=== PATIENT | female | born 1945 | race Caucasian/White ===

== ENCOUNTER 2020-08-31 13:19 | Inpatient (IN) | payer MEDICARE, BC ==
[~2020-08-31] VITALS: Ht 165.1 cm; Wt 56.2 kg
[2020-08-31] MEDS ORDERED: MEMA10TA PO (13:27)
--- NOTE | 2020-08-31 13:49 | NUR ---
[email or web address], medical screening exam in progress
--- NOTE | 2020-08-31 13:59 | NUR ---
Patient wants to make a phone call before any diagnostic tests@this time
--- NOTE | 2020-08-31 14:10 | NUR ---
[employer] officers are here speaking with the patient and family.
--- NOTE | 2020-08-31 14:32 | NUR ---
Patient placed on 5150 hold by [employer] for danger to self and others, hold started on 08/31/20 at 1430
[2020-08-31 14:44] LABS: HEMATOCRIT 39.1 % (31.2-41.9); MEAN CORPUSCULAR HEMOGLOBIN 31.2 uug (24.7-32.8); MEAN CORPUSCULAR VOLUME 94.1 fL (75.5-95.3); PLATELET COUNT (AUTO) 310 K/uL (179-408)
[2020-08-31 14:53] LABS: ETHANOL < 3 MG/DL (0-0)
[2020-08-31 14:57] LABS: CARBON DIOXIDE 26 mmol/L (21-32); CHLORIDE 104 mmol/L (98-107); GLUCOSE 86 mg/dL (74-106); POTASSIUM 3.5 mmol/L (3.5-5.1); UREA NITROGEN, BLOOD 19 mg/dL (7-18)
[2020-08-31 15:07] LABS: THYROID STIMULATING HORMONE 3.164 mIU/mL (0.358-3.740)
[2020-08-31 15:12] LABS: ACETAMINOPHEN 3.5 ug/mL (10-30); ALANINE AMINOTRANSFERASE 18 U/L (14-59); ALKALINE PHOSPHATASE 78 U/L (50-136); ASPARTATE AMINOTRANSFERASE 15 U/L (15-37); BILIRUBIN,DIRECT 0.3 mg/dL (0.0-0.2); BILIRUBIN,TOTAL 1.4 mg/dL (0.2-1.0); TOTAL PROTEIN, SERUM 7.2 g/dL (6.4-8.2)
--- NOTE | 2020-08-31 15:30 | NUR ---
Per pt is medically clear and may be trans to MHU. Called MHU, there are no beds available. Nursing food service supervisor notified need for 1:1 sitter and MHU bed.
--- NOTE | 2020-08-31 16:11 | NUR ---
Patient is getting agitated. She is getting out of bed & room frequently, +high-risk for elopement with 5150 psych HOLD for danger to self & others. Patient was also heard repeatedly saying, "I must leave. Why am I here while they're getting my money?" notified. Nursing potato chip processing supervisor notified again for 1:1 sitter need for this patient.
[2020-08-31] MEDS ORDERED: ZIPRASIDONE MESYLATE 20 MG VIAL IM ONE ×2 (16:15→16:17)
--- NOTE | 2020-08-31 16:21 | NUR ---
Patient is eating food tray from dietary department with good appetite.
--- NOTE | 2020-08-31 17:00 | NUR ---
Spoke with nursing scanning supervisor and MHU charge nurse, pt to be admitted to 3rd floor as MHU overflow next shift as there will be a 1:1 sitter available at that time.
--- NOTE | 2020-08-31 17:19 | NUR ---
Patient is still mildly agitated and heard crying loudly at times. sales officer [email or web address]
--- NOTE | 2020-08-31 18:57 | NUR ---
Patient is still waiting for MHU admission, pending available bed & nurse. information security officer [email or web address]. Hands off report given to BOLA Marquez.
--- NOTE | 2020-08-31 20:00 | NUR ---
Pt resting in gurney with NAD noted. Pending MHU admission. private security guard at bedside for 1:1 observation.
--- NOTE | 2020-08-31 21:45 | NUR ---
Admission Note: 75 y.o. female admitted to MHU accompanied by ER. Pt is on a 5150 for DTS and GD. Pt is under the care of Dr Muir and Dr Orantes, with a dx of Psychosis. According to the 5150, the police department received a call reporting a violent female with mental illness and acute memory loss. Brother in law reported Pt became paranoid and violent toward him due to an argument about money. Pt ingested some papers during her assessment. Pt is a danger to others because of her violent actions toward others and is a danger to herself due to sustaining injuries by being restrained for violent tendencies and actions. Upon face to face assessment, Pt is unkempt and disheveled and appears medicated-expresses garbled, pressured speech, and nods off during assessment. Pt is A+Ox2 to self and place, and presents with altered thought process-disorganized, easily irritable, confused, forgetful, and disoriented. Pt has poor insight into situation and minimizes reason for admission, stating she is here because I got into a tiff with my sister. Pt appears to be medicated and sedated, she is guarded as well as a poor historian. Pt received an IM of Geodon 20mg for aggressive and disruptive behaviors in the ER prior to admission to MHU. Denies SI/HI, and is able to verbally contract for safety. Upon admission to the unit VS were stable and she denied pain. Pt has no known h/o smoking, drug, or alcohol abuse. Body assessment completed with licensed staff- (B) anterior forearm bruising noted with abrasions to both arms as well. Pt placed in clean hospital gown and pants. Pt has a known medical h/o dementia, and has NKA. Dr Muir and Dr Orantes notified of admission, orders received, meds reconciled. Covid test is negative. Belongings inventoried contraband placed in unit locker, landry and credit cards taken to Nursing Medicare Biller. Pt was cognitively unable to sign paperwork, co-signed with tag machine operator. Pt educated regarding unit rules and expectations. Patient rights explained, Advisement and patient rights handbook given, Pt will need reinforcement due to altered mental status. Pt oriented to the unit, the phones, her room, and the bathroom. Pt is a high suicide risk, Q 15 minute safety checks initiated.
--- NOTE | 2020-08-31 21:50 | NUR ---
Pt trans to MHU, NAD noted.
[2020-08-31] MEDS ORDERED: MAGNESIUM HYDROXIDE 30 ML LIQUID UDC PO PRN (22:15)
[2020-08-31] MEDS ORDERED: BLOOD SUGAR DIAGNOSTIC 1 EACH STRIP VI ONE (22:15)
[2020-08-31] MEDS ORDERED: ACETAMINOPHEN 325 MG TABLET PO PRN (22:15)
[2020-08-31] MEDS ORDERED: MAG HYDROX/AL HYDROX/SIMETH 30 ML LIQUID UDC PO PRN (22:15)
[2020-08-31 22:19] VITALS: BP 113/63
[2020-09-01 07:30] VITALS: BP 148/62
[2020-09-01] MEDS ORDERED: OLANZAPINE 10 MG VIAL IM ONE (10:30)
--- NOTE | 2020-09-01 10:47 | NUR ---
GPS: Nursing Notes: Severe Agitation: Patient is awake and confused, disoriented, forgetful, restless, behavior, banging on the brady, AWOL risk, constantly pushing the exit doors "I need to get out of here..", paranoid behavior, believes that his brother in law sold her house, overly disruptive by constantly shouting, poor anger management, "My sister and bother in law took my money from the bank..", redirected and reoriented to reality by the psychiatrist, but continue to be restless, constantly shouting, setting limits, but unable to be redirected, psychotic behavior, unable to contract for safety, continue to monitor for safety, continue with treatment plan.
--- NOTE | 2020-09-01 11:04 | NUR ---
GPS: Nursing Notes: Chemical Restraint: Patient continue to be overly disruptive by constantly pushing the exit doors, stating "I NEED TO GET OUT OF HERE... I AM GOING TO LOOSE MY HOUSE..", "HE IS STEALING MY MONEY..", AWOL risk, constantly pacing in the hallway, confused, disorganized, paranoid behavior, trying to call the police, banging on the brady, restless behavior, psychotic, setting limits, but unable to be redirected, striking out when redirected by staff, confused, disoriented, poor anger management, Dr. Muir ordered: Zyprexa 5mg IM STAT for severe agitated behavior, R=18, medication IM given at this time, continue to monitor for safety, continue with treatment plan.
[2020-09-01] MEDS ORDERED: LORAZEPAM 2 MG/1 ML VIAL IM ONE (11:15)
--- NOTE | 2020-09-01 11:34 | NUR ---
GPS: Nursing Notes: Reassessment of Chemical Restraint: Continue with restless behavior, poor anger management, unable to contract for safety, paranoid, believes that she is going to loose her house, overly disruptive shouting, poor impulse control, medication IM was not effective, R=18, unable to follow directions, confused, disoriented, impaired judgment, continue to monitor for safety, continue with treatment plan.
--- NOTE | 2020-09-01 11:46 | NUR ---
GPS: Nursing Notes: Chemical Restraint: Striking out: Patient continue to be restless, confused, paranoid, continue to believes that her brother in law is stealing money from her bank, AWOL risk, shouting "I NEED TO GO HOME... GET ME OUT OF HERE.. I AM GOING TO CALL THE POLICE..", episode of trying to stand on the yassine chair without any regard for her safety, confused, disoriented, forgetful, bizarre behavior, violent outburst without provocation, scratched staff on the right arm and then tried to bite staff when assisting her to sit on the yassine chair, unable to contract for safety, overly disruptive by constantly shouting, restless behavior, Dr. Muir ordered: Ativan 1mg IM for severe agitated behavior, R=18, medication IM given at this time, continue to monitor for safety, continue with treatment plan.
--- NOTE | 2020-09-01 12:16 | NUR ---
GPS: Nursing Notes: Reassessment of Chemical Restraint: Patient is awake and responding to her name, R=18, eating 75% of her lunch, patient became calm, but continue to be confused, disoriented, forgetful, constantly asking the same question, over and over, redirected and reoriented during shift, medication IM was effective, continue to monitor for safety, continue with treatment plan.
[2020-09-01] MEDS: risperiDONE-M 0.5 MG TAB.RAPDIS PO SCH ×2 (13:00→16:26)
[2020-09-01] MEDS: LORAZEPAM 0.5 MG TABLET PO SCH ×2 (13:01→16:26)
[2020-09-01 15:19] VITALS: BP 123/67
[2020-09-01] MEDS ORDERED: HALOPERIDOL LACTATE 5 MG/1 ML VIAL IM STA (19:47)
[2020-09-01] MEDS ORDERED: BENZTROPINE MESYLATE 2 MG/2 ML AMPUL IM STA (19:47)
[2020-09-01] MEDS ORDERED: LORAZEPAM 2 MG/1 ML VIAL IM STA (19:47)
[2020-09-01 20:17] VITALS: BP 114/59
[2020-09-01] MEDS ORDERED: DIVALPROEX SPRINKLE 125 MG CAP.SPRINK PO SCH (21:00)
--- NOTE | 2020-09-01 22:15 | NUR ---
Chemical Restraint Note: Pt was received standing in the hallway screaming, "You all took my money and caged me up here! You're working with my brother in law to steal everything from me! I don't belong here!" Staff intervened, and this expert medical writer offered prn medication to help calm her, but Pt slapped at staff's hand, then grabbed it and attempted to bite. Combative, aggressive, threatening, and argumentative, Pt was unable to calm and unwilling to comply with redirection and other de-escalating measures. Uncooperative, resistant to care, and unable to follow unit rules, Pt was resistant to staff direction for self and staff safety. Dr Muir notified of Pt's behavior, and Haldol 5mg, Cogentin 1mg, and Ativan 1mg was ordered and administered to (L) buttock with moderate effect. Pt was agitated and resistant to the IM, and 3 staff were required to keep the Pt still as the shot was given. No injuries to staff or Pt occured. Pt had to be placed in a yassine chair in front of staff for safety. Pt was unsteady on her feet and refused to sit or lie down. Pt stated, "I can walk by myself" then was unable to do so independently. Pt banged her fists on the brady and the chair until she reluctantly fell asleep approximately 90 after the injection. Pt obsereved lying back in the chair with her eyes closed, breathing even and unlabored, VS stable.
[2020-09-02] MEDS: LEVOTHYROXINE SODIUM 50 MCG TABLET PO SCH ×2 (06:13→08:10)
[2020-09-02] MEDS: risperiDONE-M 0.5 MG TAB.RAPDIS PO SCH ×4 (08:10→16:56)
[2020-09-02] MEDS: LORAZEPAM 0.5 MG TABLET PO SCH ×4 (08:10→16:57)
[2020-09-02 08:30] VITALS: BP 139/60
--- NOTE | 2020-09-02 08:52 | NUR ---
GPS: Nursing Notes: Severe Agitation: Patient is overly disruptive by constantly shouting, endangering herself by standing over the yassine chair, banging and punching the table without any regard for her safety, pulling off her wound dressings, striking out, trying to scratch staff, setting limits, redirected and reoriented to reality, but unable to be redirected, confused, disorganized, aggressive toward staff, restless behavior, unable to contract for safety, continue with treatment plan.
[2020-09-02] MEDS ORDERED: BENZTROPINE MESYLATE 2 MG/2 ML AMPUL IM STA (08:57)
[2020-09-02] MEDS ORDERED: LORAZEPAM 2 MG/1 ML VIAL IM STA (08:57)
[2020-09-02] MEDS ORDERED: HALOPERIDOL LACTATE 5 MG/1 ML VIAL IM STA (08:57)
--- NOTE | 2020-09-02 09:13 | NUR ---
GPS: Nursing Notes: Chemical Restraint: Patient continue to be overly disruptive, impaired judgment, confused, disorganized, paranoid, believes that her family is stealing from her, restless behavior, shouting "I WANT TO GO HOME.. ", striking out at staff, kicking staff, standing on the yassine chair, constantly banging on the table without any regard for safety, trying to scratch staff when assisting her for safety, Dr. Muir ordered: Haldol 5mg IM, Ativan 1mg IM, and Cogentin 1mg IM STAT for severe agitation, R=18, IM medications given at this time, continue to monitor for safety, continue with treatment plan.
[2020-09-02 10:02] LABS: HEMATOCRIT 36.4 % (31.2-41.9); MEAN CORPUSCULAR HEMOGLOBIN 31.8 uug (24.7-32.8); MEAN CORPUSCULAR VOLUME 94.1 fL (75.5-95.3); PLATELET COUNT (AUTO) 253 K/uL (179-408)
[2020-09-02 10:16] LABS: BILIRUBIN,TOTAL 0.9 mg/dL (0.2-1.0); CREATININE 0.8 mg/dL (0.6-1.3); MAGNESIUM 2.2 mg/dL (1.8-2.4); POTASSIUM 3.6 mmol/L (3.5-5.1); TOTAL PROTEIN, SERUM 6.4 g/dL (6.4-8.2)
--- NOTE | 2020-09-02 11:43 | NUR ---
GPS: Nursing Notes: Reassessment of Chemical Restraint: Patient is awake and responding to her name, continue to be confused, disoriented, grabbing the air, but patient became calm, R=18, continue to monitor for safety, continue with treatment plan.
--- NOTE | 2020-09-02 13:39 | NUR ---
DOMINIQUE Initial Discharge Plan: Patient currently resides at [address], [place] [address]. Patient's brother in law Ventura ([phone]) and sister Zakiya are involved in patient's care. This SW contacted Ventura to discuss treatment and discharge plan. Ventura stated that pt will need a nursing facility and that they are unable to take care of pt at home. SW will coordinate discharge plan with MD, pt, and family for proper placement.
--- NOTE | 2020-09-02 13:40 | NUR ---
DOMINIQUE Family Contact: Patient's brother in law Ventura ([phone]) and sister Zakiya are involved in patient's care. This SW contacted Ventura to discuss treatment and discharge plan. Ventura stated that pt will need a nursing facility and that they are unable to take care of pt at home.
--- NOTE | 2020-09-02 13:40 | NUR ---
Firearms Report: Hops Farmworker completed and submitted a [employer] firearms report for 5150 grave disability certification. A copy of report has been placed in patient chart.
--- NOTE | 2020-09-02 13:46 | NUR ---
Treatment Plan: Patient refused to sign treatment plan and was aggressive. Patient appears to be very confused.
[2020-09-02 15:31] VITALS: BP 149/62
[2020-09-02 20:25] VITALS: BP 140/60
[2020-09-03] MEDS: LEVOTHYROXINE SODIUM 50 MCG TABLET PO SCH (06:38)
--- NOTE | 2020-09-03 06:49 | NUR ---
GPS: Pt.slept 6 hrs.last night. Now up on yassine-chair in front of nurses station for safety with occasional episodes of crying/screaming. Re-directed and re-assured prn. Refused Synthroid med.despite explanation of importance. Refuses fluids also at this time. Will continue to monitor.
[2020-09-03 07:30] VITALS: BP 146/78
[2020-09-03] MEDS: risperiDONE-M 0.5 MG TAB.RAPDIS PO SCH ×4 (08:38→16:49)
[2020-09-03] MEDS: LORAZEPAM 0.5 MG TABLET PO SCH ×4 (08:38→16:50)
--- NOTE | 2020-09-03 08:56 | NUR ---
GPS: Nursing Notes: Severe Agitation: Patient is awake and overly disruptive by shouting, constantly banging on the table and trying to stand on the yassine chair without any regard for her safety, threatening staff when assisting her for safety, paranoid, believes that we put her in [facility] because we are working with her brother in law, "HE IS TAKEN MY MONEY AND MY HOUSE.. I NEED TO GET OUT OF HERE..",episodes of trying to scratch staff staff, setting limits, redirected and reoriented to reality, but unable to follow directions, unable to contract for safety, continue to monitor for safety, continue with treatment plan.
[2020-09-03] MEDS ORDERED: risperiDONE-M 0.5 MG TAB.RAPDIS PO ONE (09:00)
[2020-09-03] MEDS: DIVALPROEX SPRINKLE 125 MG CAP.SPRINK PO SCH ×4 (09:00→16:50)
[2020-09-03] MEDS ORDERED: HALOPERIDOL LACTATE 5 MG/1 ML VIAL IM ONE (09:04)
[2020-09-03] MEDS ORDERED: BENZTROPINE MESYLATE 2 MG/2 ML AMPUL IM ONE (09:04)
--- NOTE | 2020-09-03 09:13 | NUR ---
GPS: Nursing Notes: Chemical Restraint: Patient continue to be overly disruptive by constantly shouting, restless behavior, paranoid behavior banging on the table constantly, standing on the yassine chair without any regard for her safety, striking out to staff when assisting her for her safety, confused, disoriented, unable to be redirected, unable to contract for safety, Dr. Muir ordered: Haldol 5mg IM and Cogentin 1mg IM STAT for severe agitation, R=18, continue to monitor for safety, continue with treatment plan.
--- NOTE | 2020-09-03 09:43 | NUR ---
GPS: Nursing Notes: Reassessment of Chemical Restraint: Patient is awake and responding to her name, impaired judgment, paranoid, but less disruptive, less shouting, IM medications were helpful, R=18, continue to be disoriented, confused, impaired judgment, poor impulse control, continue to monitor for safety, continue with treatment plan.
--- NOTE | 2020-09-03 10:42 | NUR ---
DOMINIQUE Individual Therapy: carry in worker met with patient for brief counseling to help address patients presenting problem aggressive behavior. Patient appears to be very confused and disorganized. Patient unable to have proper conversation due to her confusion.
[2020-09-03 12:07] LABS: *BILIRUBIN,URIN NEGATIVE (NEGATIVE); *BLOOD, URINE NEGATIVE (NEGATIVE); *CLARITY,URINE SLIGHTLY CLOUDY (CLEAR); *COLOR,URINE YELLOW (YELLOW); *KETONES,URINE NEGATIVE (NEGATIVE); *UROBILINOGEN,URINE 0.2 E.U./dl (NORMAL); LEUKOCYTE ESTERASE ,URINE 1+ (NEGATIVE); NITRITE, URINE NEGATIVE (NEGATIVE); PH,URINE 6.5 (5.0-8.0); UGLUCOSE NEGATIVE (NEGATIVE)
[2020-09-03 12:13] LABS: *AMPHETAMINE, URINE NEGATIVE (NEGATIVE); *CANNABINOID, URINE NEGATIVE (NEGATIVE); *COCCAINE, URINE NEGATIVE (NEGATIVE); *OPIATE, URINE NEGATIVE (NEGATIVE); *PHENCYCLIDINE SCREEN,URINE NEGATIVE (NEGATIVE)
[2020-09-03] MEDS: ENSURE ENLIVE (VAN) 240 ML LIQUID PO SCH ×2 (12:32→16:50)
--- NOTE | 2020-09-03 12:54 | NUR ---
SW Family Contact: This SW met with patient's brother in law Ventura and sister Jolynn and discussed patient's discharge and treatment plan. This SW gave family list of nursing facilities [facility], [facility], and [facility]. Patient's family reported that they were taking care of pt for the past 2 years and they are currently unable to take care of her. Sister Jolynn stated that the past 6 months she has been deteriorating and has been aggressive towards family. This SW educated family on patient's mental illness and hospitalization. Family was understanding.
[2020-09-03] MEDS ORDERED: OLANZAPINE 10 MG VIAL IM ONE (13:45)
[2020-09-03] MEDS: CEphaleXIN 250 MG CAPSULE PO SCH ×3 (14:00→21:59)
[2020-09-03 15:27] VITALS: BP 99/54
[2020-09-03 16:31] LABS: BACTERIA,URINE MANY /HPF (NONE SEEN); MUCUS,URINE FEW /LPF (0-FEW); SQUAMOUS EPITHELIAL CELL,UR FEW /HPF (NONE SEEN); URINE AMORPHOUS URATE MODERATE /HPF; WBC,URINE TNTC /HPF (0-3)
[2020-09-03 20:13] VITALS: BP 95/57
[2020-09-03] MEDS: TEMAZEPAM 7.5 MG CAPSULE PO PRN (22:00)
[2020-09-04] MEDS: CEphaleXIN 250 MG CAPSULE PO SCH ×3 (06:00→21:19)
[2020-09-04] MEDS: LEVOTHYROXINE SODIUM 50 MCG TABLET PO SCH (06:22)
--- NOTE | 2020-09-04 06:33 | NUR ---
GPS: Pt.refused her atb and synthroid med.at this time despite numerous attempts by staff. Confused,disoriented and forgetful. Reality re-orientation provided prn. Has episodes of crying and verbalizing that she wants to go home. Poor insight to present situation. Fall precautions observed. Re-assured prn.
[2020-09-04 07:30] VITALS: BP 118/73
--- NOTE | 2020-09-04 08:00 | NUR ---
PATIENT IS IN THE MONIQUE CHAIR BY THE STATION HYPER VOCAL BANGING THE THE TABLE REPEATEDLY AND ASKING TO GET THE HELL OUT OF HERE TRIED GIVING PATIENT HER DUE MEDICATIONS BUT SHE REFUSED TO TAKE THEM MADE MANY ATTEMPTS TO GET HER TO TAKE HER MEDICATIONS BUT THE AGITATION AND ANXIETY DID NOT STOP WILL OBSERVE
[2020-09-04] MEDS ORDERED: LORAZEPAM 2 MG/1 ML VIAL IM ONE (08:30)
[2020-09-04] MEDS ORDERED: HALOPERIDOL LACTATE 5 MG/1 ML VIAL IM ONE (08:30)
--- NOTE | 2020-09-04 08:34 | NUR ---
AGITATION RESTLESSNESS BANGING ON THE TABLE GOT WORSE DR RAMOS NOTIFIED WITH ORDERS FOR IM SHOTS AND GIVEN ORDERED PATIENT IS VERBALLY ABUSIVE CALLING THIS WRITTER A PIG.
[2020-09-04] MEDS: DIVALPROEX SPRINKLE 125 MG CAP.SPRINK PO SCH ×3 (09:00→16:00)
[2020-09-04] MEDS: LORAZEPAM 0.5 MG TABLET PO SCH ×3 (09:00→16:00)
[2020-09-04] MEDS: risperiDONE-M 0.5 MG TAB.RAPDIS PO SCH ×3 (09:00→16:00)
[2020-09-04] MEDS ORDERED: BENZTROPINE MESYLATE 2 MG/2 ML AMPUL IM SCH (09:00)
[2020-09-04] MEDS: ENSURE ENLIVE (VAN) 240 ML LIQUID PO SCH ×3 (09:08→17:21)
--- NOTE | 2020-09-04 14:59 | NUR ---
LINDSAY PATHAK HERE AND SEEN PATIENT WITH NO NEW ORDERS AT THIS TIME SITTING UP ON THE GERICHAIR AWAKE AND NOT IN DISTRESS AT THIS TIME.
[2020-09-04 16:00] VITALS: BP 120/50
--- NOTE | 2020-09-04 17:31 | NUR ---
FAMILY VISITING HER AT THE MOMENT SHE IS ALERT TO SELF ONLY QUIET WAS COMPLIANT WITH MEDICATIONS WILL CONTINUE TO OBSERVE AND PROVIDE COMFORT
[2020-09-04 20:26] VITALS: BP 96/56
[2020-09-04] MEDS: TEMAZEPAM 7.5 MG CAPSULE PO PRN (21:19)
[2020-09-05] MEDS: LORAZEPAM 0.5 MG TABLET PO PRN (05:50)
[2020-09-05] MEDS: LEVOTHYROXINE SODIUM 50 MCG TABLET PO SCH (06:01)
[2020-09-05] MEDS: CEphaleXIN 250 MG CAPSULE PO SCH ×3 (06:01→20:32)
[2020-09-05 07:30] VITALS: BP 97/50
[2020-09-05] MEDS: LORAZEPAM 0.5 MG TABLET PO SCH ×3 (08:24→16:21)
[2020-09-05] MEDS: risperiDONE-M 0.5 MG TAB.RAPDIS PO SCH ×3 (08:24→16:21)
[2020-09-05] MEDS: DIVALPROEX SPRINKLE 125 MG CAP.SPRINK PO SCH ×3 (08:24→16:21)
[2020-09-05] MEDS: ENSURE ENLIVE (VAN) 240 ML LIQUID PO SCH ×3 (08:36→16:21)
--- NOTE | 2020-09-05 09:44 | NUR ---
DOMINIQUE PC Hearing: Patient had 5250 probable cause hearing today and it was upheld for grave disability and danger to others.
--- NOTE | 2020-09-05 10:00 | NUR ---
SW SNF Referral: This SW sent patient's clinicals to nursing facilities. This SW sent H & P, progress notes, and medication list to: Madelyn sofia from [facility] ([phone]), Faith beckett from [facility] ([phone]), and Radha beckett from [facility] ([phone]) for placement option.
--- NOTE | 2020-09-05 10:08 | NUR ---
DOMINIQUE Individual Therapy: ironing worker met with patient for brief counseling to help address patients presenting problem aggressive behavior. Patient appears to be very confused and disorganized. Patient yelling and stating "get out of here, I do not want to talk to anyone". SW unable to conduct therapy at this time.
--- NOTE | 2020-09-05 10:39 | NUR ---
SW SNF Contact: This SW received a call from Jammie beckett from [facility] ([phone]) who stated they cannot accept pt.
--- NOTE | 2020-09-05 11:12 | NUR ---
SW SNF Contact: This SW received a phone call from Radha beckett from [facility] ([phone]) who accepted pt.
--- NOTE | 2020-09-05 11:23 | NUR ---
SW Family Contact: This SW spoke with patient's brother in law Ventura ([phone]) and stated that pt is accepted at [facility] and he was agreeable with this. This SW stated that admin will contact Ventura to discuss secondary insurance payor and will help pt sign up for medical.
--- NOTE | 2020-09-05 12:57 | NUR ---
SW Family Contact: This SW spoke with patient's brother in law Ventura ([phone]) and stated [facility] accepted pt and he stated he will do his research and will let this SW know which facility family chooses.
--- NOTE | 2020-09-05 12:58 | NUR ---
SW SNF Contact: This SW spoke with Madelyn sofia from [facility] ([phone]) who stated pt is accepted.
--- NOTE | 2020-09-05 15:39 | NUR ---
Gps/Television News Reporter- Restless, figity, poor safety awareness, gait unsteady , routine medications was administered with pudding. Appeared to be responding to internal stimuli, talking to herself, seeing someone sitting in her chair, wants him out of there .Patient perseverates that her family are stealing her money , and she had crying spells, , claimed nothing left of her money. Kept up in her yassine-chair for safety, patient kept sliding from her chair. kept infront of the Nurses station . Patient was ambulated couple of times . Had episodes of uncooperative behavior during her care/hygiene, tends to bite staff when trying to clean her.
[2020-09-05 16:00] VITALS: BP 123/87
[2020-09-05 20:20] VITALS: BP 110/57
[2020-09-05] MEDS: TEMAZEPAM 7.5 MG CAPSULE PO PRN (20:32)
[2020-09-05] MEDS: risperiDONE 1 MG TABLET PO SCH (20:32)
[2020-09-05] MEDS ORDERED: risperiDONE 0.5 MG TABLET PO SCH (21:00)
[2020-09-06] MEDS: LORAZEPAM 0.5 MG TABLET PO PRN ×4 (04:02→22:07)
[2020-09-06] MEDS: CEphaleXIN 250 MG CAPSULE PO SCH ×3 (06:00→20:25)
--- NOTE | 2020-09-06 06:00 | NUR ---
GPS: Pt.refused her AM ATB and Synthroid , despite numerous attempts by staff. Remained Confused and disoriented and forgetful. Reality re-orientation provided prn. Has episodes of crying and verbalizing that she wants to go home. Poor insight to present situation. slept 6 hrs through the night. Fall precautions observed. Re-assured prn. continue plan of care.
[2020-09-06] MEDS: LEVOTHYROXINE SODIUM 50 MCG TABLET PO SCH (06:03)
[2020-09-06 07:30] VITALS: BP_SYST 139; BP_SYST 98; BP_DIAS 62; BP_DIAS 73
[2020-09-06 07:56] LABS: CREATININE 0.8 mg/dL (0.6-1.3); MAGNESIUM 2.1 mg/dL (1.8-2.4); PHOSPHOROUS 3.3 mg/dL (2.5-4.9); POTASSIUM 4.1 mmol/L (3.5-5.1)
[2020-09-06 08:02] LABS: HEMATOCRIT 37.9 % (31.2-41.9); MEAN CORPUSCULAR HEMOGLOBIN 31.3 uug (24.7-32.8); MEAN CORPUSCULAR VOLUME 93.8 fL (75.5-95.3); PLATELET COUNT (AUTO) 285 K/uL (179-408)
[2020-09-06] MEDS: LORAZEPAM 0.5 MG TABLET PO SCH ×3 (08:05→16:13)
[2020-09-06] MEDS: risperiDONE-M 0.5 MG TAB.RAPDIS PO SCH ×3 (08:05→16:14)
[2020-09-06] MEDS: DIVALPROEX SPRINKLE 125 MG CAP.SPRINK PO SCH ×3 (08:06→16:13)
[2020-09-06] MEDS: ENSURE ENLIVE (VAN) 240 ML LIQUID PO SCH ×3 (08:06→16:14)
--- NOTE | 2020-09-06 09:54 | NUR ---
SW Family Contact: This SW spoke with patient's brother in law Ventura ([phone]) who stated that he has a appointment with [facility] and [facility] for a tour. He stated he will let this SW know which facility family will choose on 09/09.
--- NOTE | 2020-09-06 13:32 | NUR ---
Gps/Poultry Hatchery Man- Daughter in-law of her sister in to visit , patient appeared to be calmer, when family visits, patient fell asleep
[2020-09-06 16:41] VITALS: BP 136/55
--- NOTE | 2020-09-06 17:15 | NUR ---
Gps/Counter Sales Representative- Labile , aggressive during her care , kept sliding from her yassine-chair, difficulty redirecting patient. Gaits gets unsteady , fall precaution., safety reviewed emphasized. Kept in front of the Nurses station and constantly needing close supervision. , climbs out of the yassine- chair. Old bilateral skin tears to her forearms redressed with boarder dressing.
[2020-09-06] MEDS: risperiDONE 1 MG TABLET PO SCH (20:22)
[2020-09-06 20:24] VITALS: BP 142/60
[2020-09-06] MEDS ORDERED: LORAZEPAM 2 MG/1 ML VIAL IM ONE (22:15)
[2020-09-06] MEDS ORDERED: HALOPERIDOL LACTATE 5 MG/1 ML VIAL IM ONE (22:15)
--- NOTE | 2020-09-07 01:32 | NUR ---
RECEIVED PATIENT IN MONIQUE CHAIR IN FRONT OF NURSES STATION. NOTED LABILE, CONFUSED, AGGRESSIVE,BANGING THE TABLE , SLIDING OUT OF THE CHAIR SEVERAL TIMES. SHE ALSO REFUSED HER ORAL MEDICATIONS AND RE DIRECTION DID NOT WORK. DR ALVAREZ WAS INFORMED WHO GAVE AN ORDER FOR 1MG ATIVAN AND 2MG HALDOL. GIVEN AT 22:37 WITH MINIMAL EFFECT.SHE CONTINUE TO YELL AND BE RESTLESS. TOILLETTED HER AND LATER PUT IN HER BED WITH FALL PRECAUTIONS IN PLACE.VITAL SIGNS REMAIN STABLE WITH VISUAL CHECKS MADE ON HER FOR SAFETY. WILL CONTINUE TO MONITOR.
[2020-09-07] MEDS: CEphaleXIN 250 MG CAPSULE PO SCH ×3 (06:00→18:07)
[2020-09-07] MEDS: LEVOTHYROXINE SODIUM 50 MCG TABLET PO SCH (06:43)
--- NOTE | 2020-09-07 06:56 | NUR ---
SHE SLEPT FOR 4;45 HOURS.
[2020-09-07 07:31] LABS: VALPROIC ACID 70 ug/mL (50-100)
[2020-09-07] MEDS: risperiDONE-M 0.5 MG TAB.RAPDIS PO SCH ×3 (08:07→18:07)
[2020-09-07] MEDS: DIVALPROEX SPRINKLE 125 MG CAP.SPRINK PO SCH ×3 (08:07→18:07)
[2020-09-07 08:08] VITALS: BP 118/53
[2020-09-07] MEDS: LORAZEPAM 0.5 MG TABLET PO SCH ×3 (08:08→18:07)
[2020-09-07] MEDS: ENSURE ENLIVE (VAN) 240 ML LIQUID PO SCH ×3 (08:16→18:09)
[2020-09-07] MEDS ORDERED: diphenhydrAMINE 50 MG/1 ML VIAL IM ONE (12:30)
[2020-09-07] MEDS ORDERED: LORAZEPAM 2 MG/1 ML VIAL IM ONE (12:30)
[2020-09-07] MEDS ORDERED: HALOPERIDOL LACTATE 5 MG/1 ML VIAL IM ONE (12:30)
--- NOTE | 2020-09-07 12:30 | NUR ---
Gps/Internet Marketing Director- Grabbing staff, throws lunch tray on the floor,, scratching staff, trying to bite, difficulty redirecting patient, labile mood, calling out. Transmission Rebuilder called Psychiatrist Dr Walden , orders received.
--- NOTE | 2020-09-07 14:07 | NUR ---
Gps/Manufacturing Operations Manager- Kept patient up in her yassine-chair for safety, remains restless, crying spells, loud, bangings her tray, calling out, mumbling." calling out get me out of here" Try to reorient patient and redirect patient, fluid offered. Monitored safety, kept by the Nurses station
--- NOTE | 2020-09-07 14:34 | NUR ---
Gps/Ld Teacher- Patient remains up in her yassine-chair by the Nurses ststion , to be monitored closely for safety, asleep at this time, in no signs of any distress
[2020-09-07 17:03] VITALS: BP 145/76
--- NOTE | 2020-09-07 18:10 | NUR ---
Gps/Sales And Marketing Coordinator-Family came in to visit, , wanting to know patient's progress, informed of patient agressive behavior towards staff, and was medicated as ordered by Psychiatrist to calm and manage her labile behavior. .Noted patient appeared to calm down when family are here .
--- NOTE | 2020-09-07 18:41 | NUR ---
Gps/Senior Mechanical Engineer- Daughter in law remains in the room visiting noted crying spells, , patient wants to go home, tries to reorient patient to place and time. , patient not cooperative , fidgity .safety reviewed emphasized.
[2020-09-07 19:55] VITALS: BP 134/63
--- NOTE | 2020-09-07 20:00 | NUR ---
Received patient in her room sitting in a gretel chair. she is noted easily irritable, poor historian, unable to have a useful conversation. mood is irritable affect is flat. Speech is disorganized, mumbles at times. appears to be responding to internal stimuli. V/S stable. safety and fall precaution in place. will continue to monitor.
[2020-09-07] MEDS: risperiDONE 1 MG TABLET PO SCH ×2 (20:26→21:00)
--- NOTE | 2020-09-07 22:00 | NUR ---
patient refused Risperdal 1mg PO QHS. multiple attempt to administer medication yet refused. she is noted less irritable less combative at this time. will continue to monitor.
[2020-09-08] MEDS: LORAZEPAM 0.5 MG TABLET PO PRN ×2 (04:41→19:50)
[2020-09-08] MEDS: CEphaleXIN 250 MG CAPSULE PO SCH ×2 (06:00→13:46)
[2020-09-08] MEDS: LEVOTHYROXINE SODIUM 50 MCG TABLET PO SCH (06:57)
[2020-09-08 07:30] VITALS: BP 167/73
[2020-09-08] MEDS: risperiDONE-M 0.5 MG TAB.RAPDIS PO SCH ×3 (09:12→17:00)
[2020-09-08] MEDS: ENSURE ENLIVE (VAN) 240 ML LIQUID PO SCH ×3 (09:13→17:00)
[2020-09-08] MEDS: DIVALPROEX SPRINKLE 125 MG CAP.SPRINK PO SCH ×3 (09:13→17:00)
[2020-09-08] MEDS: LORAZEPAM 0.5 MG TABLET PO SCH ×3 (09:13→17:00)
--- NOTE | 2020-09-08 09:42 | NUR ---
Gps/Liquid Center Assembler- OOB to her yassine-chair , kept her infront of the Nurses station for close supervision, safety reviewed. Patient constantly fidgity, crying spells, anxious, calling out, , claimed wants to get out of here, tries to reorient patient, prompted to take routine am meds. administered with pudding . Fluid intake encouraged.
--- NOTE | 2020-09-08 11:16 | NUR ---
Gps/Powder Loader- Sliding off her yassine-chair, kept infront of the Nurses station for safety, mumbles, kept crying , no tears. banging her lap tray. . Fluids offered, kept throwing and spilling on the floor. Patient kept calling out, thinks she is in her home.
[2020-09-08] MEDS ORDERED: HALOPERIDOL LACTATE 5 MG/1 ML VIAL IM ONE (13:45)
[2020-09-08] MEDS ORDERED: diphenhydrAMINE 50 MG/1 ML VIAL IM ONE (13:45)
[2020-09-08] MEDS ORDERED: LORAZEPAM 2 MG/1 ML VIAL IM ONE (13:45)
--- NOTE | 2020-09-08 14:36 | NUR ---
Gps/vn- Patient asleep, remains in her yassine-chair, in no distress
[2020-09-08 16:00] VITALS: BP 118/74
[2020-09-08 20:00] VITALS: BP 155/79
--- NOTE | 2020-09-08 20:00 | NUR ---
RECEIVED PATIENT IN THE HALLWAY SITTING IN A MONIQUE CHAIR CLOSE TO THE NURSING STATION. SHE IS NOTED A/I X 1. RESTLESS. SHE IS UNABLE TO HAVE A MEANINGFUL CONVERSATION WITH THIS DEPOSITION OPERATOR. SHE MUMBLES. HER JUDGMENT AND INSIGHT ARE IMPAIRED. SHE IS NOTED EASILY IRRITABLE, HARD TO REDIRECT. SHE REFUSED PO FLUIDS AND SNACKS AT THIS TIME. V/S STABLE. ATIVAN 0.5MG WAS GIVEN FOR AGITATION. SAFETY AND FALL PRECATUION IN PLACE. WILL CONTINUE TO MONITOR.
[2020-09-08] MEDS: risperiDONE 1 MG TABLET PO SCH (21:00)
--- NOTE | 2020-09-08 22:00 | NUR ---
PATIENT REFUSED RISPERIDONE 1MG PO QHS. MULTIPLE ATTEMPTS YET INEFFECTIVE. WILL CONTINUE TO MONITOR.
[2020-09-09] MEDS: TEMAZEPAM 7.5 MG CAPSULE PO PRN ×2 (01:32→23:47)
--- NOTE | 2020-09-09 01:45 | NUR ---
patient noted restless, yelling at time. Patient was given temazepam 7.5mg PO PRN for insomnia. Medication was put on pudding. However, she spitted some of the medication. unable to guess how much of the medication she was able to ingest. will continue to monitor.
[2020-09-09] MEDS: LEVOTHYROXINE SODIUM 50 MCG TABLET PO SCH (07:00)
[2020-09-09 07:30] VITALS: BP 140/53
[2020-09-09] MEDS: risperiDONE-M 0.5 MG TAB.RAPDIS PO SCH ×4 (08:43→17:04)
[2020-09-09] MEDS: LORAZEPAM 0.5 MG TABLET PO SCH ×4 (08:43→17:04)
[2020-09-09] MEDS: DIVALPROEX SPRINKLE 125 MG CAP.SPRINK PO SCH ×2 (08:43→10:10)
[2020-09-09] MEDS: ENSURE ENLIVE (VAN) 240 ML LIQUID PO SCH ×3 (08:43→17:05)
--- NOTE | 2020-09-09 10:51 | NUR ---
SNF Referral: This SW sent patient's clinicals to admissions (F:[phone]) for [facility].
--- NOTE | 2020-09-09 11:12 | NUR ---
SNF Contact This SW received a call from [facility] admissions who stated that they are unable to accept pt.
--- NOTE | 2020-09-09 11:12 | NUR ---
SW Family Contact: This SW spoke with patient's brother in law Ventura ([phone]) and stated that [facility] is unable to accept pt due to behavior issues. Ventura stated that [facility] they are agreeable with pt transferring there upon dc.
[2020-09-09] MEDS ORDERED: LACTULOSE 20 G/30 ML LIQUID UDC PO ONE (11:30)
[2020-09-09] MEDS ORDERED: LORAZEPAM 2 MG/1 ML VIAL IM ONE (11:45)
--- NOTE | 2020-09-09 11:45 | NUR ---
GPS: Nursing Notes: Ativan IM: Medication IM not given due to patient became calm, less disruptive, stopped hitting staff, cooperative with nursing care, continue to monitor for safety, continue with treatment plan.
[2020-09-09 11:49] LABS: HEMATOCRIT 41.4 % (31.2-41.9); MEAN CORPUSCULAR HEMOGLOBIN 31.2 uug (24.7-32.8); MEAN CORPUSCULAR VOLUME 93.4 fL (75.5-95.3); PLATELET COUNT (AUTO) 310 K/uL (179-408)
[2020-09-09 11:54] LABS: CREATININE 0.8 mg/dL (0.6-1.3); POTASSIUM 4.4 mmol/L (3.5-5.1)
[2020-09-09 12:00] LABS: BILIRUBIN,TOTAL 1.5 mg/dL (0.2-1.0); MAGNESIUM 2.4 mg/dL (1.8-2.4); TOTAL PROTEIN, SERUM 6.9 g/dL (6.4-8.2)
[2020-09-09 15:07] VITALS: BP 122/69
[2020-09-09 20:00] VITALS: BP 154/79
[2020-09-09] MEDS: risperiDONE 1 MG TABLET PO SCH (20:20)
--- NOTE | 2020-09-10 05:46 | NUR ---
GPS: Remain calm and cooperative with meds, resting in bed comfortably. assisted with adl's.continue plan of care.
--- NOTE | 2020-09-10 06:03 | NUR ---
slept 4.30 hrs through the night after restoril 7.5 mg po given.
[2020-09-10] MEDS: LEVOTHYROXINE SODIUM 50 MCG TABLET PO SCH (06:07)
[2020-09-10 07:30] VITALS: BP 141/75
[2020-09-10] MEDS: ENSURE ENLIVE (VAN) 240 ML LIQUID PO SCH ×3 (09:00→16:22)
[2020-09-10] MEDS: risperiDONE-M 0.5 MG TAB.RAPDIS PO SCH ×3 (09:08→16:22)
[2020-09-10] MEDS: LORAZEPAM 0.5 MG TABLET PO SCH ×3 (09:08→16:21)
[2020-09-10] MEDS: busPIRone 5 MG TABLET PO SCH ×3 (09:12→16:22)
--- NOTE | 2020-09-10 09:17 | NUR ---
GPS: Nursing Notes: Severe Agitation: Patient is awake and overly disruptive by shouting constantly, trying to scratch staff when assisting her, impaired judgment, disorganized, resistant with nursing, striking out to staff, banging on the table, restless, behavior, setting limits, redirected and reoriented, but unable to follow directions, Dr. Muir pageeliu, continue to monitor for safety, continue with treatment plan.
--- NOTE | 2020-09-10 09:18 | NUR ---
SW Family Contact: This SW spoke with patient's brother in law Ventura ([phone]) and he requested to speak to doctor Isadora. This SW notified doctor Isadora.
[2020-09-10] MEDS ORDERED: LORAZEPAM 2 MG/1 ML VIAL IM ONE (09:45)
--- NOTE | 2020-09-10 09:50 | NUR ---
GPS: Nursing Notes: Chemical Restraint: Patient continue to be overly disruptive by constantly shouting, trying to stand on the yassine chair without any regard for her safety, striking out at staff, trying to scratch staff when assisting her, restless behavior, setting limits, but unable to follow any directions, disorganized, confused, Dr. Muir called and ordered: Ativan 1mg IM STAT for severe agitated behavior, R=18, medication IM given at this time, continue to monitor for safety, continue with treatment plan.
--- NOTE | 2020-09-10 10:20 | NUR ---
GPS: Nursing Notes: Reassessment of Chemical Restraint: Patient is awake and responding to her name, patient became calm, confused, disoriented, disorganized, stopped hitting staff, medication IM was effective, R=18, continue to monitor for safety, continue with treatment plan.
--- NOTE | 2020-09-10 11:53 | NUR ---
DOMINIQUE Individual Therapy: interior surface insulation worker met with patient for brief counseling to help address patients presenting problem aggressive behavior. Patient appears to be very confused and disorganized. Patient is confused stating at she is at home or yelling she wants to go home. Patient is unable to have a proper conversation due to confusion.
[2020-09-10 16:12] VITALS: BP 115/71
[2020-09-10 17:34] LABS: *BILIRUBIN,URIN NEGATIVE (NEGATIVE); *BLOOD, URINE NEGATIVE (NEGATIVE); *CLARITY,URINE CLEAR (CLEAR); *COLOR,URINE YELLOW (YELLOW); *KETONES,URINE 1+ (NEGATIVE); *UROBILINOGEN,URINE 0.2 E.U./dl (NORMAL); LEUKOCYTE ESTERASE ,URINE TRACE (NEGATIVE); NITRITE, URINE NEGATIVE (NEGATIVE); UGLUCOSE NEGATIVE (NEGATIVE)
[2020-09-10 17:52] LABS: BACTERIA,URINE NONE SEEN /HPF (NONE SEEN); MUCUS,URINE FEW /LPF (0-FEW); SQUAMOUS EPITHELIAL CELL,UR MODERATE /HPF (NONE SEEN); URINE AMORPHOUS PHOSPHATES FEW /HPF; WBC,URINE 20-50 /HPF (0-3)
[2020-09-10 20:15] VITALS: BP 127/67
[2020-09-10] MEDS: risperiDONE 1 MG TABLET PO SCH (20:44)
[2020-09-10] MEDS: TEMAZEPAM 7.5 MG CAPSULE PO PRN (23:00)
[2020-09-11] MEDS: LEVOTHYROXINE SODIUM 50 MCG TABLET PO SCH (06:05)
[2020-09-11 07:30] VITALS: BP 118/65
[2020-09-11] MEDS: busPIRone 5 MG TABLET PO SCH ×3 (08:19→16:54)
[2020-09-11] MEDS: risperiDONE-M 0.5 MG TAB.RAPDIS PO SCH ×3 (08:19→16:54)
[2020-09-11] MEDS: LORAZEPAM 0.5 MG TABLET PO SCH ×3 (08:19→16:54)
[2020-09-11] MEDS: ENSURE ENLIVE (VAN) 240 ML LIQUID PO SCH ×3 (08:21→18:02)
[2020-09-11] MEDS ORDERED: LACTULOSE 20 G/30 ML LIQUID UDC PO ONE (11:00)
[2020-09-11] MEDS ORDERED: CEFTRIAXONE 1 G VIAL IM ONE ×2 (12:30→14:30)
[2020-09-11 16:00] VITALS: BP 106/74
[2020-09-11] MEDS: BENZTROPINE MESYLATE 0.5 MG TABLET PO SCH (18:45)
[2020-09-11 20:00] VITALS: BP 111/68
[2020-09-11] MEDS: risperiDONE 1 MG TABLET PO SCH (20:07)
[2020-09-11] MEDS: TEMAZEPAM 7.5 MG CAPSULE PO PRN (21:03)
[2020-09-12] MEDS: LEVOTHYROXINE SODIUM 50 MCG TABLET PO SCH (06:11)
--- NOTE | 2020-09-12 06:49 | NUR ---
Patient slept 7 hrs through out the shift.
[2020-09-12 07:17] LABS: HEMATOCRIT 36.8 % (31.2-41.9); MEAN CORPUSCULAR HEMOGLOBIN 31.5 uug (24.7-32.8); MEAN CORPUSCULAR VOLUME 92.7 fL (75.5-95.3); PLATELET COUNT (AUTO) 264 K/uL (179-408)
[2020-09-12 07:30] VITALS: BP 119/62
[2020-09-12 07:33] LABS: BILIRUBIN,TOTAL 0.9 mg/dL (0.2-1.0); CREATININE 0.8 mg/dL (0.6-1.3); MAGNESIUM 2.2 mg/dL (1.8-2.4); POTASSIUM 3.9 mmol/L (3.5-5.1); TOTAL PROTEIN, SERUM 5.9 g/dL (6.4-8.2)
[2020-09-12 08:00] VITALS: BP 119/62
[2020-09-12] MEDS: risperiDONE-M 0.5 MG TAB.RAPDIS PO SCH ×3 (10:57→16:07)
[2020-09-12] MEDS: BENZTROPINE MESYLATE 0.5 MG TABLET PO SCH ×3 (10:58→16:08)
[2020-09-12] MEDS: LORAZEPAM 0.5 MG TABLET PO SCH ×3 (10:58→16:09)
[2020-09-12] MEDS: busPIRone 5 MG TABLET PO SCH ×3 (10:58→16:08)
[2020-09-12] MEDS: ENSURE ENLIVE (VAN) 240 ML LIQUID PO SCH ×3 (10:59→17:39)
[2020-09-12] MEDS: GABAPENTIN 100 MG CAPSULE PO SCH ×3 (10:59→16:09)
--- NOTE | 2020-09-12 13:24 | NUR ---
SW Family Contact: This SW spoke with patient's brother in law Ventura ([phone]) and stated pt's possible dc is 09/14 and he was agreeable with this to [facility] SNF.
--- NOTE | 2020-09-12 13:24 | NUR ---
SW Note: This SW spoke with patient and discussed that she will be going to [facility] SNF and she was agreeable with this plan.
[2020-09-12 16:00] VITALS: BP 98/48
[2020-09-12] MEDS: LORAZEPAM 0.5 MG TABLET PO PRN (19:49)
[2020-09-12 20:30] VITALS: BP 97/50
[2020-09-12] MEDS ORDERED: GABAPENTIN 300 MG CAPSULE PO SCH (21:00)
[2020-09-12] MEDS ORDERED: GABAPENTIN 100 MG CAPSULE PO SCH (21:00)
[2020-09-13] MEDS: LEVOTHYROXINE SODIUM 50 MCG TABLET PO SCH (06:20)
[2020-09-13] MEDS: ENSURE ENLIVE (VAN) 240 ML LIQUID PO SCH ×2 (08:42→12:58)
[2020-09-13] MEDS: risperiDONE-M 0.5 MG TAB.RAPDIS PO SCH ×2 (09:00→12:41)
[2020-09-13] MEDS: LORAZEPAM 0.5 MG TABLET PO SCH ×2 (09:00→12:58)
[2020-09-13] MEDS: busPIRone 5 MG TABLET PO SCH ×2 (09:00→12:40)
[2020-09-13] MEDS: BENZTROPINE MESYLATE 0.5 MG TABLET PO SCH ×2 (09:00→12:40)
[2020-09-13] MEDS: GABAPENTIN 100 MG CAPSULE PO SCH ×2 (09:00→12:40)
--- NOTE | 2020-09-13 09:51 | NUR ---
SW Discharge Note: Patient will be discharged to a locked chcf facility to [address] [address]; ([phone]) via ambulance at 1PM. Shift Supervisor Rn spoke with Radha, Assembly Line Robot Operator at [facility]; ([phone]), who stated patient will be accepted at facility today. Patients brother in law Ventura ([phone]) is aware and agreeable with discharge. Patient is alert and oriented x1 and is not able to plan for self-care at this time but is willing to accept care provided for her at the facility. Patient denies any suicidal or homicidal ideation. Patient is aware and agreeable with discharge plans. Patient will continue to follow-up with her Psychiatrist Dr. Muir and Medical Imaging Specialist Dr. Davis at [address] [address]; ([phone]). Patient will follow-up at the center. Patient presents with euthymic mood and congruent affect.
[2020-09-13 10:18] VITALS: BP 119/61
[2020-09-13] MEDS: LORAZEPAM 0.5 MG TABLET PO PRN (11:00)
--- NOTE | 2020-09-13 14:48 | NUR ---
Patient discharged to [facility]. Patient awake, alert and oriented x 1, confused. Not in acute distress. VS WNL. Patient denies any pain/ discomfort. ID armband removed. Belongings accounted for and belongings list signed. Discharge documents sent with patient/ ambulance crew. Patient fixated on purse, reassured patient purse will be going with patient to facility. Patient left unit via [facility] gurney. Nursing report given to BOLA Whatley of [facility]. Patient will follow up with Dr. Muir (psychiatrist) and Dr. Davis (oil refinery operator) at [facility].
== END 2020-09-13 14:40 | DRG 885 ==
LOC: ER 13:19 → GPS 21:43
PROVIDERS: ADMIT Psychiatry & Neurology Psychosomatic Medicine; ATTEND Nurse Practitioner Family
DX: F25.0 Schizoaffective disorder, bipolar type (principal); F01.50 Vascular dementia, unspecified severity, without behavioral disturbance, psychotic disturbance, mood disturbance, and anxiety; G93.41 Metabolic encephalopathy; N39.0 Urinary tract infection, site not specified; E87.0 Hyperosmolality and hypernatremia; E44.0 Moderate protein-calorie malnutrition; E72.4 Disorders of ornithine metabolism; E03.9 Hypothyroidism, unspecified; B96.20 Unspecified Escherichia coli [E. coli] as the cause of diseases classified elsewhere; F41.9 Anxiety disorder, unspecified; Z20.822 Contact with and (suspected) exposure to COVID-19; F29 Unspecified psychosis not due to a substance or known physiological condition; F60.3 Borderline personality disorder; E88.09 Other disorders of plasma-protein metabolism, not elsewhere classified; Z68.20 Body mass index [BMI] 20.0-20.9, adult
CPT/HCPCS: 36415; 70030-TC; 70450; 71045; 80164; 83605; 83735; 84100; 84443; 85025; 87040; 87077; 87086; 93005; A4663; G0480; J0515; J0696; J1200; J1630; J2060; J2358; J3486

== ENCOUNTER 2020-09-13 15:25 | Emergency (ER) | payer MEDICARE, BC ==
[~2020-09-13] VITALS: Ht 165.1 cm; Wt 56.7 kg
[~2020-09-13 15:25] MED LIST: MEMA10TA PO
--- NOTE | 2020-09-13 15:30 | NUR ---
Per nursing equipment records supervisor pt will be admitted to the ER. Pt placed in room 2b, security officers and guards at bedside for safety and 1:1 observation.
--- NOTE | 2020-09-13 15:35 | NUR ---
MD at bedside for assessment Addendum: 09/13/20 at 1613 by CARMELO Patient noted yelling and hitting staff
--- NOTE | 2020-09-13 15:40 | NUR ---
1 to 1 sitter at bedside (security)
[2020-09-13] MEDS ORDERED: LORAZEPAM 2 MG/1 ML VIAL ONE (15:42)
[2020-09-13] MEDS ORDERED: HALOPERIDOL LACTATE 5 MG/1 ML VIAL ONE (15:42)
[2020-09-13] MEDS ORDERED: diphenhydrAMINE 50 MG/1 ML VIAL ONE (15:42)
[2020-09-13] MEDS ORDERED: HALOPERIDOL LACTATE 5 MG/1 ML VIAL IM ONE (15:45)
[2020-09-13] MEDS ORDERED: LORAZEPAM 2 MG/1 ML VIAL IM ONE (15:45)
[2020-09-13] MEDS ORDERED: diphenhydrAMINE 50 MG/1 ML VIAL IM ONE (15:45)
--- NOTE | 2020-09-13 15:50 | NUR ---
Patient behavior has calmed down, no restraints applied at this time, sitter noted at bedside
--- NOTE | 2020-09-13 16:11 | NUR ---
Patient being picked up at by [facility], patient continues to cry but is no longer hitting, no signs of acute distress noted, will return to prior living arrangements
[2020-09-13 16:58] VITALS: BP 135/71
== END 2020-09-13 16:30 | disposition home or self-care (01) ==
LOC: ER 15:25
DX: F03.90 Unspecified dementia, unspecified severity, without behavioral disturbance, psychotic disturbance, mood disturbance, and anxiety (principal); R45.1 Restlessness and agitation; Z79.899 Other long term (current) drug therapy
CPT/HCPCS: 96372; 99284; J1200; J1630; J2060; A4663

== ENCOUNTER 2021-09-10 14:32 | Inpatient (IN) | payer MEDICARE, BC ==
[~2021-09-10] VITALS: Ht 167.6 cm; Wt 77.1 kg
[2021-09-10] MEDS ORDERED: GABA100C PO (15:00)
[2021-09-10] MEDS ORDERED: LEVO50TA PO (15:00)
[2021-09-10] MEDS ORDERED: NA P133E RC (15:00)
[2021-09-10] MEDS ORDERED: MAGN400O6 PO (15:00)
[2021-09-10] MEDS ORDERED: RISP2TAB5 PO (15:00)
[2021-09-10] MEDS ORDERED: ACET-73 PO (15:00)
[2021-09-10] MEDS ORDERED: ACET-2154 PO (15:00)
[2021-09-10] MEDS ORDERED: BUSP7.5T7 PO (15:00)
[2021-09-10] MEDS ORDERED: MAG-55 PO (15:00)
[2021-09-10] MEDS ORDERED: MEMA10TA PO (15:00)
[2021-09-10] MEDS ORDERED: COGENTIN PO (15:00)
[2021-09-10 15:17] LABS: MEAN CORPUSCULAR VOLUME 87.9 fL (75.5-95.3); PLATELET COUNT (AUTO) 290 K/uL (179-408)
[2021-09-10 15:26] LABS: CARBON DIOXIDE 29 mmol/L (21-32); CHLORIDE 103 mmol/L (98-107); CREATININE 0.9 mg/dL (0.6-1.3); GLUCOSE 101 mg/dL (74-106); UREA NITROGEN, BLOOD 20 mg/dL (7-18)
[2021-09-10 15:39] LABS: ETHANOL < 3 MG/DL (0-0)
[2021-09-10 15:41] LABS: ALANINE AMINOTRANSFERASE 19 U/L (14-59); ALKALINE PHOSPHATASE 78 U/L (50-136); ASPARTATE AMINOTRANSFERASE 13 U/L (15-37); BILIRUBIN,DIRECT 0.2 mg/dL (0.0-0.2); BILIRUBIN,TOTAL 1.1 mg/dL (0.2-1.0); TOTAL PROTEIN, SERUM 6.7 g/dL (6.4-8.2)
[2021-09-10 15:47] LABS: ACETAMINOPHEN < 2.0 ug/mL (10-30)
[2021-09-10 20:10] VITALS: BP 125/76
--- NOTE | 2021-09-10 20:23 | NUR ---
Pt taken to [facility] via [facility] with all belongings.
[2021-09-10] MEDS ORDERED: MAG HYDROX/AL HYDROX/SIMETH 30 ML LIQUID UDC PO PRN (20:45)
[2021-09-10] MEDS ORDERED: MAGNESIUM HYDROXIDE 30 ML LIQUID UDC PO PRN (20:45)
[2021-09-10] MEDS ORDERED: BLOOD SUGAR DIAGNOSTIC 1 EACH STRIP VI ONE (21:00)
[2021-09-10] MEDS: TEMAZEPAM 7.5 MG CAPSULE PO PRN (21:07)
[2021-09-11] MEDS: LORAZEPAM 0.5 MG TABLET PO PRN ×3 (03:41→16:51)
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
[2021-09-11] MEDS: LEVOTHYROXINE SODIUM 50 MCG TABLET PO SCH (06:17)
[2021-09-11 07:51] VITALS: BP 119/62
[2021-09-11] MEDS: GABAPENTIN 100 MG CAPSULE PO SCH ×3 (08:16→16:06)
[2021-09-11] MEDS: risperiDONE 1 MG TABLET PO SCH ×3 (09:30→16:06)
[2021-09-11] MEDS: LORAZEPAM 0.5 MG TABLET PO SCH ×3 (09:30→16:06)
[2021-09-11] MEDS ORDERED: POLYVINYL ALCOHOL OPHT DROPS 15 ML BOTTLE EACHEYE PRN (11:30)
--- NOTE | 2021-09-11 12:35 | NUR ---
Gps/Field Party Manager-Patient was able to take a nap this am, till 1215 this pm, taken to the dinning to eat . Patient with poor insight, tend to wander around, goes room to room, unable to fine her room . Encouraged eat, feed self, compliant with pm meds.
--- NOTE | 2021-09-11 14:00 | NUR ---
Gps/Carpenter- Crying spells, weinning , confused, speech incoherent kept repeating " I'm fat my days are over" . Redirected, reality reorientations, patient remains confused, pacing around. Stayed with patient, kept in bed, tried to kept reorienting, redirecting. Patient appeared to be relaxed, quiet at this time, asleep, continue to monitor behavior. No additional prn given at this time
--- NOTE | 2021-09-11 14:18 | NUR ---
Gps/General Production Laborer- Sleeping intermittently in bed , safety emphasized, put on the yassine-chair for safety, wander around anxiously, confused ,incoherent , claimed she's fat and ugly
--- NOTE | 2021-09-11 14:36 | NUR ---
DOMINIQUE Initial Discharge Note: Pt's current resides at [facility] ([address] [address]) ([phone]). Per Donna from the facility, pt is welcome back upon discharge. DOMINIQUE will continue to work with pt, family and MD to ensure a safe and proper discharge plan.
--- NOTE | 2021-09-11 14:40 | NUR ---
SW Discharge Update: Gian Thompson from [facility] ([address] [address]) ([phone]) pt is welcome back upon discharge.
--- NOTE | 2021-09-11 14:40 | NUR ---
Firearms Report: Supervisor Grove completed and submitted a [employer] firearms report for 5150 a danger to others and grave disability certifications. A copy of report has been placed in patient chart.
[2021-09-11] MEDS: ACETAMINOPHEN 325 MG TABLET PO PRN (14:47)
--- NOTE | 2021-09-11 14:55 | NUR ---
Gps/Orthotist/Prosthetist- Called Dr Sarath Coker, was informed patient complaining of chest pain , B/P 125/76-HR 77 reg. temp.97.6, resp. 18 02 sat 98%, Orders received , Stat EKG as well as stat troponin . Informed Dr Coker, patient was given, tylenol 650 mg. po. .chest pain., continue to monitor patient.
[2021-09-11] MEDS ORDERED: NITROGLYCERIN 0.4 MG/TAB BOTTLE SL PRN (16:15)
--- NOTE | 2021-09-11 16:21 | NUR ---
GPS: INFORMED JOSE ROBERTO OROZCO MD OF PT TROPONIN LEVEL 5 AND ECG RESULT. PER MD, TO RECHECK ECG AT 1999 AND ORDERED NITROGLYCERIN 0.4MG SL PRN IN CASE PT COMPLAIN OF CHEST PAIN. PT ON CHAIR FOR SAFETY. SEVERE CONFUSED, TALKING TO SELF, ATTENTION SEEKER, AND EASILY GETS AGITATED. PT ON ATIVAN, GIVEN AND TOLERATED WELL. REDIRECTED PT EARLIER PT WAS WANDERING ALONG THE HALLWAY AND INTRUSIVE, GETTING INTO OTHER PT ROOM.
[2021-09-11 16:28] VITALS: BP 125/76
--- NOTE | 2021-09-11 16:34 | NUR ---
GPS: CHANGE DOSAGE OF ATIVAN ROUTINE FROM 0.5 TO 1MG PO TID PER PSYCHIATRIST TELEPHONE ORDER PT IS CONTINUOUSLY HAVING CRYING SPELLS AND STATING "PLEASE HELP, VIVEK, YOU GOT TO HELP ME, TAKE ME OUT OF HERE". PT VERY ANXIOUS AND TALKING TO SELF.
[2021-09-11] MEDS ORDERED: LORAZEPAM 1 MG TABLET PO PRN (16:45)
[2021-09-11] MEDS ORDERED: LORAZEPAM 1 MG TABLET PO SCH (17:00)
[2021-09-11] MEDS: GABAPENTIN 300 MG CAPSULE PO SCH (21:30)
--- NOTE | 2021-09-11 21:30 | NUR ---
Received patient in the hallway sitting in a gretel chair. she is noted sleeping but easily arousable. patient is A/O x 1. she is in no distress. she is unable to have a meaningful conversation with this proposal writer. Patient is noted with disorganized speech, and flight of ideas. She is able to comply with her [facility] medication regiment. V/S stable. she denied pain or discomfort. she was given PO Fluids and snacks. she is reassured for her safety. safety and fall precaution are in place. will continue to monitor.
[2021-09-11] MEDS: TEMAZEPAM 7.5 MG CAPSULE PO PRN (22:22)
[2021-09-12] MEDS: LEVOTHYROXINE SODIUM 50 MCG TABLET PO SCH (06:48)
[2021-09-12 07:30] VITALS: BP 132/78
[2021-09-12] MEDS: ACETAMINOPHEN 325 MG TABLET PO PRN (08:00)
[2021-09-12] MEDS: risperiDONE 1 MG TABLET PO SCH ×3 (08:02→18:21)
[2021-09-12] MEDS: LORAZEPAM 0.5 MG TABLET PO PRN ×2 (08:03→20:10)
[2021-09-12] MEDS: GABAPENTIN 100 MG CAPSULE PO SCH ×3 (10:29→18:20)
[2021-09-12] MEDS: LORAZEPAM 1 MG TABLET PO SCH ×3 (10:29→18:21)
[2021-09-12 11:12] LABS: *BILIRUBIN,URIN NEGATIVE (NEGATIVE); *BLOOD, URINE NEGATIVE (NEGATIVE); *CLARITY,URINE SLIGHTLY CLOUDY (CLEAR); *COLOR,URINE LIGHT YELLOW (YELLOW); *KETONES,URINE NEGATIVE (NEGATIVE); *UROBILINOGEN,URINE 0.2 E.U./dl (NORMAL); LEUKOCYTE ESTERASE ,URINE 1+ (NEGATIVE); NITRITE, URINE POSITIVE (NEGATIVE); PH,URINE 6.5 (5.0-8.0); UGLUCOSE NEGATIVE (NEGATIVE)
--- NOTE | 2021-09-12 11:27 | NUR ---
Gps/Clinical Account Specialist- Toileted, taken to the bathroom,voided adequately ,urine cloudy , urine specimen obtained and sent to lab. assisted with her hygiene . Patient anxious restless, pacing around , needing redirections speech confused and incoherent . calling out , kept repeating words/request.
--- NOTE | 2021-09-12 12:43 | NUR ---
Gps/General Lithographic Worker- Kept up in her yassine-chair during her lunch, to prevent patient from wandering around and be able to concentrate eating her lunch . Compliant with her routine medications, fluid offered, adequate intake. Monitor safety, denies any pain or any discomfort. Dr Sarath Coker was in and saw patient. Reviewed labs. EKG results from yesterday.
[2021-09-12 13:58] LABS: BACTERIA,URINE MANY /HPF (NONE SEEN)
[2021-09-12 13:59] LABS: SQUAMOUS EPITHELIAL CELL,UR FEW /HPF (NONE SEEN)
--- NOTE | 2021-09-12 16:05 | NUR ---
Gps/Trademark Paralegal- Assisted back to bed, for Echocardiogram as ordered by Dr Coker done @ bedside.Patient informed. of the procedure.
[2021-09-12 17:05] VITALS: BP 126/69
[2021-09-12] MEDS: GABAPENTIN 300 MG CAPSULE PO SCH (20:10)
[2021-09-12 20:50] VITALS: BP 90/51
--- NOTE | 2021-09-13 04:26 | NUR ---
GPS NOTES: Received pt. standing in the hallway, A&Ox1. Patient responding to name, confused and forgetful. Unnsteady gait noted, remind to use FWW when ambulating. Attention seeker, keep repeating self and asking the same requests to staff. Constant re-direction and re-assurance needed. Unable to make meaningful conversation, very anxious and afraid. Ativan given as ordered. Med complaint. patient slept well. No apparent distress. closely monitoring observed.
[2021-09-13] MEDS: LEVOTHYROXINE SODIUM 50 MCG TABLET PO SCH (06:16)
[2021-09-13 07:52] VITALS: BP 151/76
[2021-09-13] MEDS: GABAPENTIN 100 MG CAPSULE PO SCH ×3 (08:18→16:27)
[2021-09-13] MEDS: risperiDONE 1 MG TABLET PO SCH ×3 (08:18→16:27)
[2021-09-13] MEDS: LORAZEPAM 1 MG TABLET PO SCH ×3 (08:18→16:27)
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
[2021-09-13 16:10] VITALS: BP 97/65
[2021-09-13] MEDS: ACETAMINOPHEN 325 MG TABLET PO PRN (16:28)
[2021-09-13 20:00] VITALS: BP 141/56
[2021-09-13] MEDS: GABAPENTIN 300 MG CAPSULE PO SCH (20:15)
[2021-09-13] MEDS: TEMAZEPAM 7.5 MG CAPSULE PO PRN (22:47)
[2021-09-13] MEDS: LORAZEPAM 0.5 MG TABLET PO PRN (23:25)
--- NOTE | 2021-09-13 23:25 | NUR ---
GPS: Pt.is awake,anxious,calling out and confused,disoriented and disorganized. Reality re-orientation provided. Re-assured frequently. Sleeping pill given earlier was ineffective so far. Ativan 0.5mg given PO and taken after some persuasion from staff. Fall precautions observed. Will continue to monitor.
[2021-09-14] MEDS: LEVOTHYROXINE SODIUM 50 MCG TABLET PO SCH (06:32)
--- NOTE | 2021-09-14 06:49 | NUR ---
GPS: Pt. slept 7.15 last night. Reality re-orientation provided prn. Poor insight to present situation. Fall precautions observed. Behavior monitoring continues.
[2021-09-14 07:38] VITALS: BP 157/80
[2021-09-14] MEDS: risperiDONE 1 MG TABLET PO SCH ×3 (08:35→16:29)
[2021-09-14] MEDS: ACETAMINOPHEN 325 MG TABLET PO PRN ×2 (08:35→16:29)
[2021-09-14] MEDS: GABAPENTIN 100 MG CAPSULE PO SCH ×3 (08:35→16:29)
[2021-09-14] MEDS: LORAZEPAM 1 MG TABLET PO SCH ×3 (08:35→16:29)
[2021-09-14] MEDS: LORAZEPAM 0.5 MG TABLET PO PRN ×2 (10:06→22:47)
--- NOTE | 2021-09-14 10:15 | NUR ---
GPS: Nursing Notes: Thought Disorder: Patient is awake and responding to her name, disorganized, impaired judgment, confused, poor insight, believes that Ventura is here, "I know Ventura is here...I can hear him..", redirected and reoriented during shift, gets easily irritable when redirected, loud and pressured speech, anxious affect, believes that she is [age] years old, overly disruptive by constantly shouting, poor impulse control, A/Ox1, unable to formulate a viable plan for self care, unkempt appearance, continue to monitor for safety, continue with treatment plan.
[2021-09-14] MEDS: CEphaleXIN 500 MG CAPSULE PO SCH ×2 (12:47→20:03)
[2021-09-14 16:33] VITALS: BP 111/71
[2021-09-14] MEDS: GABAPENTIN 300 MG CAPSULE PO SCH (20:03)
[2021-09-14 20:05] VITALS: BP 109/75
[2021-09-14] MEDS: TEMAZEPAM 7.5 MG CAPSULE PO PRN (21:54)
[2021-09-15] MEDS: LEVOTHYROXINE SODIUM 50 MCG TABLET PO SCH (06:06)
[2021-09-15 08:04] VITALS: BP 119/68
[2021-09-15] MEDS: ACETAMINOPHEN 325 MG TABLET PO PRN (08:53)
[2021-09-15] MEDS: risperiDONE 1 MG TABLET PO SCH ×3 (08:53→17:27)
[2021-09-15] MEDS: GABAPENTIN 100 MG CAPSULE PO SCH (08:53)
[2021-09-15] MEDS: CEphaleXIN 500 MG CAPSULE PO SCH ×2 (08:53→21:12)
[2021-09-15] MEDS: LORAZEPAM 1 MG TABLET PO SCH ×3 (08:53→17:27)
[2021-09-15 11:16] LABS: HEMATOCRIT 41.9 % (31.2-41.9); MEAN CORPUSCULAR HEMOGLOBIN 29.7 uug (24.7-32.8); PLATELET COUNT (AUTO) 310 K/uL (179-408)
--- NOTE | 2021-09-15 11:28 | NUR ---
GPS: Nursing Notes: Thought Disorder: Patient is awake and responding to her name, impaired judgment, poor insight, disoriented, confused, overly disruptive by shouting, believes that she is leaving today, redirected and reoriented during shift, unable to formulate a viable plan for self care, gets easily anxious when redirected, believes that she is going home, poor impulse control, continue to monitor for safety, continue with treatment plan.
[2021-09-15 11:31] LABS: BILIRUBIN,TOTAL 0.8 mg/dL (0.2-1.0); CREATININE 0.9 mg/dL (0.6-1.3); POTASSIUM 4.2 mmol/L (3.5-5.1)
[2021-09-15] MEDS ORDERED: GABAPENTIN 100 MG CAPSULE PO SCH (13:00)
[2021-09-15] MEDS: GABAPENTIN 300 MG CAPSULE PO SCH ×3 (13:12→21:12)
[2021-09-15 16:38] VITALS: BP 105/66
[2021-09-15 19:59] VITALS: BP 119/72
[2021-09-15] MEDS ORDERED: risperiDONE 1 MG TABLET PO SCH (21:00)
[2021-09-15] MEDS: TEMAZEPAM 7.5 MG CAPSULE PO PRN (21:12)
[2021-09-15] MEDS: LORAZEPAM 0.5 MG TABLET PO PRN (21:13)
[2021-09-16] MEDS: LEVOTHYROXINE SODIUM 50 MCG TABLET PO SCH (07:00)
[2021-09-16 07:30] VITALS: BP 113/53
[2021-09-16] MEDS: ACETAMINOPHEN 325 MG TABLET PO PRN ×2 (08:09→16:17)
[2021-09-16] MEDS: risperiDONE 1 MG TABLET PO SCH ×3 (08:09→16:17)
[2021-09-16] MEDS: GABAPENTIN 300 MG CAPSULE PO SCH ×4 (08:09→20:12)
[2021-09-16] MEDS: CEphaleXIN 500 MG CAPSULE PO SCH ×2 (08:09→20:12)
[2021-09-16] MEDS: LORAZEPAM 1 MG TABLET PO SCH ×3 (08:09→16:17)
--- NOTE | 2021-09-16 14:38 | NUR ---
GPS: Nursing Notes: Thought Disorder: Patient is awake and responding to her name, impaired judgment, poor insight, confused, disorganized, overly disruptive by shouting "I WANT TO GO HOME..", "BILL GET AWAY FROM HERE..", redirected and reoriented during shift, but believes that staff is a liar, poor impulse control, unable to formulate a viable plan for self care, internally preoccupied, continue with treatment plan.
[2021-09-16 15:50] VITALS: BP 127/61
[2021-09-16] MEDS: risperiDONE 2 MG TABLET PO SCH (20:12)
[2021-09-16 20:19] VITALS: BP 111/68
[2021-09-17] MEDS: LEVOTHYROXINE SODIUM 50 MCG TABLET PO SCH (06:17)
[2021-09-17 07:30] VITALS: BP 129/54
[2021-09-17] MEDS: risperiDONE 1 MG TABLET PO SCH ×2 (09:02→12:47)
[2021-09-17] MEDS: CEphaleXIN 500 MG CAPSULE PO SCH ×2 (09:02→20:55)
[2021-09-17] MEDS: busPIRone 5 MG TABLET PO SCH ×2 (09:02→12:47)
[2021-09-17] MEDS: LORAZEPAM 1 MG TABLET PO SCH ×3 (09:02→17:44)
[2021-09-17] MEDS: GABAPENTIN 300 MG CAPSULE PO SCH ×4 (09:02→20:55)
[2021-09-17] MEDS: LORAZEPAM 0.5 MG TABLET PO PRN (09:59)
--- NOTE | 2021-09-17 11:30 | NUR ---
DOMINIQUE Family Contact: DOMINIUQE spoke with pt's brother in law, Ventura ([phone]). Ventura is agreeable for patients return to [facility]. DOMINIQUE stated she will inform Ventura of the discharge day once MD clears pt for discharge. DOMINIQUE will continue to be in contact with family, pt and MD to ensure a safe and proper discharge plan.
[2021-09-17] MEDS ORDERED: risperiDONE 1 MG TABLET PO SCH (13:30)
[2021-09-17] MEDS ORDERED: risperiDONE 2 MG TABLET PO ONE (13:48)
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
[2021-09-17 16:45] VITALS: BP 112/66
--- NOTE | 2021-09-17 17:07 | NUR ---
GPS: PT WAS VERY ANXIOUS DURING THE EARLY SHIFT, PACING ALONG THE HALLWAY, VERY CONFUSED, WITH CRYING SPELLS NOTED. PT SEEN BY PSYCHIATRIST AND ADJUSTED DOSE OF MEDS. PT WAS GIVEN ATIVAN PRN AND TOLERATED WELL. PT COMPLIANT TO CARE AND MEDS. PLACED TO CHAIR FOR SAFETY. NO AGITATION NOTED AT THIS TIME. PT IS NOW QUIET, TAKING A NAP.
[2021-09-17] MEDS: risperiDONE 2 MG TABLET PO SCH ×2 (17:44→20:55)
[2021-09-17 20:44] VITALS: BP 109/57
[2021-09-17] MEDS: TEMAZEPAM 7.5 MG CAPSULE PO PRN (23:09)
--- NOTE | 2021-09-18 06:23 | NUR ---
Received to care, sleeping intermittently. Compliant with medications. PRN Restoril given for insomnia. Woke up around midnight. Shower was given, and she went back to sleep, And continues to sleep. No distress noted.
[2021-09-18] MEDS: LEVOTHYROXINE SODIUM 50 MCG TABLET PO SCH (06:37)
[2021-09-18 07:30] VITALS: BP 118/59
[2021-09-18] MEDS: risperiDONE 2 MG TABLET PO SCH ×3 (08:49→20:28)
[2021-09-18] MEDS: LORAZEPAM 1 MG TABLET PO SCH (08:49)
[2021-09-18] MEDS: CEphaleXIN 500 MG CAPSULE PO SCH ×2 (08:50→20:28)
[2021-09-18] MEDS: GABAPENTIN 300 MG CAPSULE PO SCH ×4 (08:50→20:28)
[2021-09-18] MEDS: LORAZEPAM 1 MG TABLET PO PRN ×2 (10:39→17:43)
--- NOTE | 2021-09-18 10:41 | NUR ---
GPS: PT FEELS SO ANXIOUS, TALKING TO SELF, REDIRECTED BUT NOT POSSIBLE. PT GIVEN ATIVAN 1MG PRN AND TOLERATED WELL. DENIES PAIN OR DISCOMFORT. WILL MONITOR PT.
[2021-09-18] MEDS: DIVALPROEX SPRINKLE 125 MG CAP.SPRINK PO SCH ×3 (12:39→20:28)
[2021-09-18 15:35] VITALS: BP 108/63
[2021-09-18 20:00] VITALS: BP 146/88
[2021-09-18] MEDS: TEMAZEPAM 7.5 MG CAPSULE PO PRN (22:34)
[2021-09-19] MEDS: LORAZEPAM 1 MG TABLET PO PRN (02:48)
--- NOTE | 2021-09-19 06:52 | NUR ---
Received to care, up in yassine chair, talking to self, difficult to redirect. Paranoid and delusional. Reality orientation provided. Assisted with bedtime snack and PO fluids. PRN Restoril and Ativan were given during the night. Slept well, and continues to sleep. No distress, noted.
[2021-09-19] MEDS: LEVOTHYROXINE SODIUM 50 MCG TABLET PO SCH (08:19)
[2021-09-19] MEDS: DIVALPROEX SPRINKLE 125 MG CAP.SPRINK PO SCH ×3 (08:20→16:37)
[2021-09-19] MEDS: risperiDONE 2 MG TABLET PO SCH ×3 (08:20→20:31)
[2021-09-19] MEDS: GABAPENTIN 300 MG CAPSULE PO SCH ×4 (08:20→20:31)
[2021-09-19] MEDS: CEphaleXIN 500 MG CAPSULE PO SCH ×2 (08:20→20:31)
[2021-09-19] MEDS: LORAZEPAM 0.5 MG TABLET PO PRN ×2 (09:27→14:52)
--- NOTE | 2021-09-19 10:43 | NUR ---
Gps/It Network Engineer- oob to chair during breakfast, fed self after set up, with occ. prompting. Confused, weinning, crying spells, needing redirections ans constant reorientation. safety reviewed and continue to emphasized. Routine am meds. administered with applesauce. Kept patient up in her chair, stayed in her group activity .
[2021-09-19 11:06] VITALS: BP 136/61
[2021-09-19] MEDS: ACETAMINOPHEN 325 MG TABLET PO PRN (14:52)
--- NOTE | 2021-09-19 14:54 | NUR ---
Gps/Hoisting Engineer -Toileted, ambulated to the bathroom ,voided adequately, also noted bladder incontinence. Good sadia-care rendered, kept skin dry and clean , diaper on.
[2021-09-19 16:45] VITALS: BP 135/54
[2021-09-19 19:48] VITALS: BP 98/49
[2021-09-20] MEDS: ACETAMINOPHEN 325 MG TABLET PO PRN ×2 (04:07→10:19)
[2021-09-20] MEDS: LEVOTHYROXINE SODIUM 50 MCG TABLET PO SCH (06:15)
[2021-09-20 07:30] VITALS: BP 125/59
[2021-09-20] MEDS: GABAPENTIN 300 MG CAPSULE PO SCH ×4 (08:30→20:32)
[2021-09-20] MEDS: CEphaleXIN 500 MG CAPSULE PO SCH ×2 (08:30→20:32)
[2021-09-20] MEDS: DIVALPROEX SPRINKLE 125 MG CAP.SPRINK PO SCH ×3 (08:30→16:47)
[2021-09-20] MEDS: risperiDONE 2 MG TABLET PO SCH ×3 (08:33→20:32)
[2021-09-20] MEDS: LORAZEPAM 0.5 MG TABLET PO PRN ×2 (10:19→14:19)
[2021-09-20 16:00] VITALS: BP 132/57
[2021-09-20 20:00] VITALS: BP 111/59
--- NOTE | 2021-09-20 21:00 | NUR ---
received patient in the hallway sitting in a gretel chair closed to the nursing station for safety. she was noted A/O x1 she is confused and disoriented. she is noted sleeping but easily arousable. patient is unable to have a meaningful conversation with this senior mortgage underwriter. her speech is disorganized and tangental. she is noted with delusions on persecution; she stated, "Are we safe here? who is here with me? are you going to be here with me? i don't want to be alone" patient makes poor eye contact. patient was reassured for her safety. safety and fall precaution are in place. V/S stable, will continue to monitor.
[2021-09-21] MEDS: TEMAZEPAM 7.5 MG CAPSULE PO PRN ×2 (00:22→21:20)
[2021-09-21] MEDS: LORAZEPAM 0.5 MG TABLET PO PRN ×3 (05:38→22:25)
[2021-09-21] MEDS: LEVOTHYROXINE SODIUM 50 MCG TABLET PO SCH (06:02)
--- NOTE | 2021-09-21 06:32 | NUR ---
patient slept for approx 6.45 hrs through the night. she was observed talking to herself and repeating same phrases over and over again. will continue to monitor,
[2021-09-21 08:15] VITALS: BP 133/57
[2021-09-21] MEDS: GABAPENTIN 300 MG CAPSULE PO SCH ×4 (08:58→20:31)
[2021-09-21] MEDS: risperiDONE 2 MG TABLET PO SCH ×3 (08:58→20:31)
[2021-09-21] MEDS: DIVALPROEX SPRINKLE 125 MG CAP.SPRINK PO SCH ×3 (08:59→17:43)
[2021-09-21] MEDS: ACETAMINOPHEN 325 MG TABLET PO PRN (12:59)
[2021-09-21 16:20] VITALS: BP 115/66
[2021-09-21 19:57] VITALS: BP 112/66
--- NOTE | 2021-09-22 06:07 | NUR ---
GPS NOTES: Received patient in gerichair near the station for safety. Patient responsive to name and touch. Patient tends to wander around the unit so re-direction is needed. Snacks provided with good appetite. Patient is paranoid and fearful in the current settings. Patient making statements "I want to go home, why you dont let me go home", "I want to see my , I don"t want a new ". Patient re-assured to be in the safe environment. Constant re-orientation to reality needed. Patient is repetitive with her statements. Ativan given for anxiety. Restoril given. Frequent rounding observed. Patient kept safe during shift. All needs met and attended.
[2021-09-22] MEDS: LEVOTHYROXINE SODIUM 50 MCG TABLET PO SCH (06:18)
[2021-09-22] MEDS: DIVALPROEX SPRINKLE 125 MG CAP.SPRINK PO SCH ×4 (08:05→21:03)
[2021-09-22] MEDS: GABAPENTIN 300 MG CAPSULE PO SCH ×5 (08:05→21:03)
[2021-09-22] MEDS: risperiDONE 2 MG TABLET PO SCH ×3 (08:05→21:03)
[2021-09-22 09:44] VITALS: BP 119/54
[2021-09-22] MEDS: ACETAMINOPHEN 325 MG TABLET PO PRN (12:26)
--- NOTE | 2021-09-22 14:21 | NUR ---
GPS: Nursing Notes: Thought Disorder: Patient is awake and responding to her name, poor impulse control, overly disruptive by shouting constantly, internally preoccupied, redirected and reoriented during shift, gets easily anxious when redirected, believes that she is going to get hurt here, fearful and anxious affect, episodes of crying spells, believes that Bill is here somewhere, believes that she is going home today, unable to formulate a viable plan for self care, continue to monitor for safety, continue with treatment plan.
[2021-09-22] MEDS: LORAZEPAM 0.5 MG TABLET PO PRN (15:58)
[2021-09-22 16:32] VITALS: BP 119/66
[2021-09-22 20:37] VITALS: BP 99/55
[2021-09-22] MEDS: TEMAZEPAM 7.5 MG CAPSULE PO PRN (21:51)
[2021-09-23] MEDS: LEVOTHYROXINE SODIUM 50 MCG TABLET PO SCH (06:44)
[2021-09-23 07:30] VITALS: BP 145/55
[2021-09-23] MEDS: ACETAMINOPHEN 325 MG TABLET PO PRN ×2 (08:18→17:08)
[2021-09-23] MEDS: GABAPENTIN 300 MG CAPSULE PO SCH ×2 (08:52→22:08)
[2021-09-23] MEDS: risperiDONE 2 MG TABLET PO SCH ×3 (08:52→22:08)
[2021-09-23] MEDS: DIVALPROEX SPRINKLE 125 MG CAP.SPRINK PO SCH ×4 (08:52→22:08)
[2021-09-23 09:40] LABS: HEMATOCRIT 39.8 % (31.2-41.9); PLATELET COUNT (AUTO) 262 K/uL (179-408)
[2021-09-23 10:02] LABS: BILIRUBIN,TOTAL 1.2 mg/dL (0.2-1.0); CREATININE 0.8 mg/dL (0.6-1.3); POTASSIUM 4.3 mmol/L (3.5-5.1); TOTAL PROTEIN, SERUM 6.6 g/dL (6.4-8.2)
[2021-09-23] MEDS: busPIRone 5 MG TABLET PO SCH ×2 (12:30→17:08)
[2021-09-23] MEDS: GABAPENTIN 100 MG CAPSULE PO SCH ×2 (12:30→17:08)
[2021-09-23] MEDS: LORAZEPAM 0.5 MG TABLET PO SCH ×2 (12:32→17:12)
[2021-09-23] MEDS ORDERED: GABAPENTIN 300 MG CAPSULE PO SCH (13:00)
--- NOTE | 2021-09-23 14:19 | NUR ---
GPS: Nursing Notes: Thought Disorder: Patient is awake and responding to her name, impaired judgment, overly disruptive by shouting, poor impulse control, internally preoccupied, episodes of crying spells, believes that she is [age] years old, believes that she is going home, shouting "Bill.. Get away..", "I know.. You are here..", disoriented, poor insight, unable to formulate a viable plan for self care, continue to monitor for safety, continue with treatment plan.
[2021-09-23 14:41] VITALS: BP 109/64
[2021-09-23 20:00] VITALS: BP 139/58
[2021-09-24] MEDS: TEMAZEPAM 7.5 MG CAPSULE PO PRN ×2 (00:02→20:44)
[2021-09-24] MEDS: LEVOTHYROXINE SODIUM 50 MCG TABLET PO SCH (07:00)
[2021-09-24 07:30] VITALS: BP 136/63
[2021-09-24] MEDS: busPIRone 5 MG TABLET PO SCH ×3 (08:27→16:47)
[2021-09-24] MEDS: risperiDONE 2 MG TABLET PO SCH ×4 (08:27→20:43)
[2021-09-24] MEDS: GABAPENTIN 100 MG CAPSULE PO SCH ×3 (08:27→16:47)
[2021-09-24] MEDS: DIVALPROEX SPRINKLE 125 MG CAP.SPRINK PO SCH ×4 (08:27→20:43)
[2021-09-24] MEDS: LORAZEPAM 0.5 MG TABLET PO SCH ×3 (08:30→16:47)
--- NOTE | 2021-09-24 10:08 | NUR ---
GPS: PT ON CHAIR FOR SAFETY. CONSTANT REDIRECTION DONE PT SCREAMS AND REPEATEDLY STATING" I WANT TO SEE MY KIDS". PT ENCOURAGED TO ATTEND GROUP THERAPY. A/O X 1 TO NAME ONLY. COMPLIANT WITH CARE AND MEDS. WILL CONTINUE WITH TREATMENT PLAN.
[2021-09-24 16:00] VITALS: BP 158/60
[2021-09-24] MEDS: GABAPENTIN 300 MG CAPSULE PO SCH (20:43)
[2021-09-24 20:45] VITALS: BP 107/51
[2021-09-25] MEDS: LEVOTHYROXINE SODIUM 50 MCG TABLET PO SCH (06:11)
[2021-09-25 07:30] VITALS: BP 127/73
[2021-09-25] MEDS: ENSURE ENLIVE (VAN) 240 ML LIQUID PO SCH (09:06)
[2021-09-25] MEDS: risperiDONE 2 MG TABLET PO SCH ×4 (09:06→20:08)
[2021-09-25] MEDS: DIVALPROEX SPRINKLE 125 MG CAP.SPRINK PO SCH ×4 (09:06→20:08)
[2021-09-25] MEDS: LORAZEPAM 0.5 MG TABLET PO SCH (09:06)
[2021-09-25] MEDS: busPIRone 5 MG TABLET PO SCH ×3 (09:06→17:37)
[2021-09-25] MEDS: GABAPENTIN 100 MG CAPSULE PO SCH ×3 (09:06→17:37)
--- NOTE | 2021-09-25 12:02 | NUR ---
DOMINIQUE Family Contact: DOMINIQUE informed pt's [id number], Ventura ([phone]) of pt's discharge order to [facility] on 09/26/21 at 11AM. Ventura was grateful and agreeable of the discharge plan.
[2021-09-25 15:36] VITALS: BP 101/53
--- NOTE | 2021-09-25 18:12 | NUR ---
GPS: PT ON CHAIR FOR SAFETY. ALERT AND ORIENTED TO NAME ONLY. CONFUSED AND NO MEANINGFUL CONVERSATION NOTED. PT COMPLIANT TO CARE AND MEDS. NO AGITATION NOTED AT THIS TIME. PT WILL BE DISCHARGE TOMORROW TO SNF.
[2021-09-25 19:59] VITALS: BP 119/70
[2021-09-25] MEDS: GABAPENTIN 300 MG CAPSULE PO SCH (20:07)
[2021-09-25] MEDS: LORAZEPAM 0.5 MG TABLET PO PRN (20:08)
[2021-09-25] MEDS: TEMAZEPAM 7.5 MG CAPSULE PO PRN (21:26)
[2021-09-26] MEDS: LEVOTHYROXINE SODIUM 50 MCG TABLET PO SCH (06:02)
[2021-09-26 07:30] VITALS: BP 101/68
[2021-09-26] MEDS: busPIRone 5 MG TABLET PO SCH (09:23)
[2021-09-26] MEDS: LORAZEPAM 0.5 MG TABLET PO PRN (09:23)
[2021-09-26] MEDS: risperiDONE 2 MG TABLET PO SCH (09:23)
[2021-09-26] MEDS: ACETAMINOPHEN 325 MG TABLET PO PRN (09:24)
[2021-09-26] MEDS: DIVALPROEX SPRINKLE 125 MG CAP.SPRINK PO SCH (09:24)
[2021-09-26] MEDS: ENSURE ENLIVE (VAN) 240 ML LIQUID PO SCH (09:24)
[2021-09-26] MEDS: GABAPENTIN 100 MG CAPSULE PO SCH (09:24)
--- NOTE | 2021-09-26 09:37 | NUR ---
DOMINIQUE Discharge Note: Pt will be discharged to [facility] ([phone]) located at [address] [place] [address] via Ambulance transportation at 11AM. DOMINIQUE spoke with admin coordinators, Donna ([phone]) and Radha ([phone]) at the facility who state that they are ready to accept the patient today. Pt is aware and agreeable with discharge plan. Pts [id number], Ventura ([phone]) is aware and agreeable with the discharge plan. Pt is alert and oriented x1(name), is unable to plan for self-care at this time but is willing to accept care at SNF. Pt denies any suicidal or homicidal ideation. Pt will follow-up with the facility with Psychiatrist, Dr. Muir ([phone]) and Automotive Worker Foreman, Dr. Navarro. Pt presents with calm mood and congruent affect. PHARMACY: [facility]: ([phone]) [address], [address], [place] [address].
--- NOTE | 2021-09-26 10:27 | NUR ---
GPS: PT ON CHAIR FOR SAFETY. DURING START OF SHIFT, PT WAS ANXIOUS AND KEEPS ON REPEATING WORDS "WHERE ARE YOU LEORA", "HELP ME CALL A POLICE". SHE WAS GIVEN ATIVAN PO AND TOLERATED WELL. COMPLIANT WITH CARE AND MEDS. NO RESISTANCE WITH ADLS. NO AGITATION NOTED. PT WILL BE DISCHARGE TODAY TO [facility] AT 12NOON. CALLED AND SPOKE WITH ADMITTING NURSE AT THE FACILITY FOR REPORT.
--- NOTE | 2021-09-26 12:30 | NUR ---
GPS: PT DISCHARGE FROM THE UNIT, PICKED UP BY AMBULANCE TRANSPORTATION GOING TO [facility]. PT COOPERATIVE WITH THE TRANSFER. NO AGITATION NOTED. ALL BELONGINGS GIVEN AND ACCOUNTED FOR BY STAFF. PSYCHIATRIST AND ELECTRIC RANGE SERVICER AWARE.
== END 2021-09-26 12:30 | DRG 885 ==
LOC: ER 14:33 → GPS 18:53
PROVIDERS: ADMIT Psychiatry & Neurology Psychosomatic Medicine
DX: F25.0 Schizoaffective disorder, bipolar type (principal); F01.50 Vascular dementia, unspecified severity, without behavioral disturbance, psychotic disturbance, mood disturbance, and anxiety; E44.1 Mild protein-calorie malnutrition; N39.0 Urinary tract infection, site not specified; E03.9 Hypothyroidism, unspecified; F60.3 Borderline personality disorder; Z20.822 Contact with and (suspected) exposure to COVID-19; F29 Unspecified psychosis not due to a substance or known physiological condition; E88.09 Other disorders of plasma-protein metabolism, not elsewhere classified; F41.9 Anxiety disorder, unspecified; K21.9 Gastro-esophageal reflux disease without esophagitis; F03.90 Unspecified dementia, unspecified severity, without behavioral disturbance, psychotic disturbance, mood disturbance, and anxiety; Z66 Do not resuscitate; Z79.890 Hormone replacement therapy; B96.20 Unspecified Escherichia coli [E. coli] as the cause of diseases classified elsewhere; Z68.27 Body mass index [BMI] 27.0-27.9, adult
CPT/HCPCS: 36415; 80164; 84484; 85025; 87077; 87086; 93005; 93307; 97161; A4663; G0480

== ENCOUNTER 2022-02-05 01:10 | Inpatient (IN) | payer MEDICARE, BC ==
[~2022-02-05] VITALS: Ht 167.6 cm; Wt 60.3 kg
[~2022-02-05 01:10] MED LIST changes: +ACET-2154 PO; +ACET-73 PO; +GABA100C PO; +LEVO50TA PO; +MAG-55 PO; +MAGN400O6 PO; -MEMA10TA PO; +NA P133E RC
[2022-02-05] MEDS ORDERED: diphenhydrAMINE 50 MG/1 ML VIAL IM ONE ×2 (01:30→12:00)
[2022-02-05] MEDS ORDERED: LORAZEPAM 2 MG/1 ML VIAL IM ONE ×2 (01:30→12:00)
[2022-02-05] MEDS ORDERED: HALOPERIDOL LACTATE 5 MG/1 ML VIAL IM ONE ×2 (01:30→12:00)
[2022-02-05] MEDS ORDERED: HALOPERIDOL LACTATE 5 MG/1 ML VIAL ONE (01:30)
[2022-02-05] MEDS ORDERED: diphenhydrAMINE 50 MG/1 ML VIAL ONE (01:30)
[2022-02-05] MEDS ORDERED: LORAZEPAM 2 MG/1 ML VIAL ONE (01:31)
[2022-02-05 02:18] LABS: HEMATOCRIT 37.3 % (31.2-41.9); MEAN CORPUSCULAR HEMOGLOBIN 30.1 uug (24.7-32.8); MEAN CORPUSCULAR VOLUME 89.7 fL (75.5-95.3); PLATELET COUNT (AUTO) 312 K/uL (179-408)
[2022-02-05] MEDS ORDERED: GABA-532 PO ×2 (02:20)
[2022-02-05] MEDS ORDERED: POLY15DR27 EACHEYE (02:20)
[2022-02-05] MEDS ORDERED: OXCA300T4 PO (02:20)
[2022-02-05] MEDS ORDERED: BUSP5TAB3 PO (02:20)
[2022-02-05] MEDS ORDERED: RISP2TAB5 PO (02:20)
[2022-02-05] MEDS ORDERED: RISP1TAB7 PO (02:20)
[2022-02-05 02:36] LABS: CARBON DIOXIDE 28 mmol/L (21-32); CHLORIDE 103 mmol/L (98-107); CREATININE 0.9 mg/dL (0.6-1.3); GLUCOSE 96 mg/dL (74-106); POTASSIUM 4.4 mmol/L (3.5-5.1); UREA NITROGEN, BLOOD 23 mg/dL (7-18)
[2022-02-05 02:37] LABS: ETHANOL < 3 MG/DL (0-0)
[2022-02-05 02:48] LABS: ALANINE AMINOTRANSFERASE 31 U/L (14-59); ALKALINE PHOSPHATASE 83 U/L (50-136); ASPARTATE AMINOTRANSFERASE 29 U/L (15-37); BILIRUBIN,DIRECT 0.1 mg/dL (0.0-0.2); BILIRUBIN,TOTAL 0.3 mg/dL (0.2-1.0); TOTAL PROTEIN, SERUM 6.8 g/dL (6.4-8.2)
[2022-02-05 03:05] LABS: MAGNESIUM 1.9 mg/dL (1.8-2.4)
[2022-02-05] MEDS ORDERED: CYANOCOBALAMIN 1000 MCG/ML VIAL IM ONE (03:45)
[2022-02-05 03:57] LABS: *BILIRUBIN,URIN NEGATIVE (NEGATIVE); *BLOOD, URINE NEGATIVE (NEGATIVE); *CLARITY,URINE SLIGHTLY CLOUDY (CLEAR); *COLOR,URINE LIGHT YELLOW (YELLOW); *KETONES,URINE NEGATIVE (NEGATIVE); *UROBILINOGEN,URINE 0.2 E.U./dl (NORMAL); LEUKOCYTE ESTERASE ,URINE TRACE (NEGATIVE); NITRITE, URINE POSITIVE (NEGATIVE); PH,URINE 5.5 (5.0-8.0); UGLUCOSE NEGATIVE (NEGATIVE)
[2022-02-05] MEDS ORDERED: CYANOCOBALAMIN 1000 MCG/ML VIAL ONE (04:04)
[2022-02-05 04:21] LABS: BACTERIA,URINE MANY /HPF (NONE SEEN); RBC,URINE NONE SEEN /HPF (0-3); SQUAMOUS EPITHELIAL CELL,UR FEW /HPF (NONE SEEN)
[2022-02-05] MEDS ORDERED: MAG HYDROX/AL HYDROX/SIMETH 30 ML LIQUID UDC PO PRN (05:45)
[2022-02-05] MEDS ORDERED: MAGNESIUM HYDROXIDE 30 ML LIQUID UDC PO PRN (05:45)
[2022-02-05 05:49] VITALS: BP 131/52
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
[2022-02-05 07:30] VITALS: BP 146/57
[2022-02-05] MEDS ORDERED: SULFAMETH/TRIMETH 800/160 MG TABLET PO SCH (09:00)
--- NOTE | 2022-02-05 11:56 | NUR ---
Firearms Report: News Camera Operator completed and submitted a [employer] firearms report for 5150 grave disability and DTO certifications. A copy of report has been placed in patient chart.
[2022-02-05] MEDS: NITROFURANTOIN/NITROFURAN MAC 100 MG CAPSULE PO SCH ×2 (12:00→20:11)
--- NOTE | 2022-02-05 12:10 | NUR ---
Treatment Plan Patient refused to sign treatment plan due to disorganized thought process.
--- NOTE | 2022-02-05 12:40 | NUR ---
Patient became agitated, combative, disoriented, confused, high potential for violence to self and others. Psychiatrist ordered Haldol 5 mg IM, Ativan 1 mg IM, and Benadryl 25 mg IM. Security was called and 3 people were necessary to administer the medication, no force was applied or needed. Reassurance given. Fall and safety precautions implemented.
--- NOTE | 2022-02-05 12:43 | NUR ---
DOMINIQUE Facility Contact: SW contacted [facility] [address] [place] [address] ([phone]) and spoke with Radha , physician support coordinator, who stated pt is welcome back when she is ready for discharge.
--- NOTE | 2022-02-05 12:44 | NUR ---
SW Family Contact: SW spoke with patient's zisloqr-ii-ywx/conservator, Ventura ([phone]) and discussed treatment and discharge plan. Ventura provided collateral information (see SW assessment). Ventura stated he is pt's conservator and this SW requested copies.
[2022-02-05] MEDS: OXCARBAZEPINE 300 MG TABLET PO SCH ×2 (13:00→17:41)
[2022-02-05] MEDS: OLANZAPINE 2.5 MG TABLET PO SCH ×2 (13:00→17:41)
[2022-02-05] MEDS: GABAPENTIN 100 MG CAPSULE PO SCH ×2 (13:00→17:41)
--- NOTE | 2022-02-05 15:47 | NUR ---
Patient is confused, disoriented, disorganized. A/O X 1 to person. Refusing medications and resistant to nursing care. Reassurance given. Fall and safety precautions implemented.
[2022-02-05 16:45] VITALS: BP 131/63
[2022-02-05] MEDS: LORAZEPAM 1 MG TABLET PO PRN (19:41)
[2022-02-05] MEDS: GABAPENTIN 300 MG CAPSULE PO SCH (20:11)
[2022-02-05 20:39] VITALS: BP 111/63
--- NOTE | 2022-02-05 20:50 | NUR ---
GPS: Anxious,restless,crying earlier during start of shift. Confused,disoriented and disorganized. Poor insight to present situation. Needed constant re-direction earlier. Meds.given as ordered. Fluids encouraged to resolve uti. Fall precautions observed.
[2022-02-05] MEDS ORDERED: OLANZAPINE 5 MG TABLET PO SCH (21:00)
[2022-02-06] MEDS: LORAZEPAM 1 MG TABLET PO PRN ×2 (04:51→09:46)
[2022-02-06 07:30] VITALS: BP 112/46
[2022-02-06 07:47] LABS: ALANINE AMINOTRANSFERASE 25 U/L (14-59); ALKALINE PHOSPHATASE 84 U/L (50-136); ASPARTATE AMINOTRANSFERASE 22 U/L (15-37); BILIRUBIN,TOTAL 0.6 mg/dL (0.2-1.0); CARBON DIOXIDE 33 mmol/L (21-32); CHLORIDE 101 mmol/L (98-107); GLUCOSE 93 mg/dL (74-106); POTASSIUM 4.2 mmol/L (3.5-5.1); TOTAL PROTEIN, SERUM 6.6 g/dL (6.4-8.2); UREA NITROGEN, BLOOD 17 mg/dL (7-18)
[2022-02-06] MEDS: GABAPENTIN 100 MG CAPSULE PO SCH ×3 (08:41→16:50)
[2022-02-06] MEDS: NITROFURANTOIN/NITROFURAN MAC 100 MG CAPSULE PO SCH ×2 (08:41→20:26)
[2022-02-06] MEDS: OLANZAPINE 2.5 MG TABLET PO SCH ×2 (08:41→13:30)
[2022-02-06] MEDS: OXCARBAZEPINE 300 MG TABLET PO SCH ×4 (08:41→20:26)
[2022-02-06] MEDS ORDERED: OLANZAPINE ZYDIS 5 MG TAB.RAPDIS PO ONE (15:00)
--- NOTE | 2022-02-06 15:25 | NUR ---
Patient is restless, agitated, anxious, keeps repeating "Please help me". Ativan 1 mg was given at 09:46, semi effective. One time order of Zyprexa 5 mg PO was given, will be monitored for effectiveness. A/O X 1 to self. Reassurance given. Fall and safety precautions implemented.
[2022-02-06 16:00] VITALS: BP 120/52
[2022-02-06] MEDS: TEMAZEPAM 7.5 MG CAPSULE PO PRN (20:27)
[2022-02-06] MEDS: GABAPENTIN 300 MG CAPSULE PO SCH (20:27)
[2022-02-06 20:30] VITALS: BP 121/53
[2022-02-06] MEDS ORDERED: OLANZAPINE 2.5 MG TABLET PO SCH (21:00)
--- NOTE | 2022-02-07 03:57 | NUR ---
GPS: Patient to be restless, agitated and crying. Patient responding to internal stimuli, patient noted to be reaching in the air with her eyes closed. Patient very fearful, constantly saying "Help me". Re-assure patient to be in a safe environment, patient not understanding at this time. Meds given as ordered. Tolerated well. Patient slept mostly during shift w/ episode of crying and yelling. Need met and attended. Good pericare provided. Fall and safety precautions in place at all times.
[2022-02-07] MEDS: LORAZEPAM 1 MG TABLET PO PRN ×3 (05:19→20:35)
[2022-02-07 07:42] VITALS: BP 107/56
[2022-02-07] MEDS: OXCARBAZEPINE 300 MG TABLET PO SCH ×4 (08:13→20:35)
[2022-02-07] MEDS: GABAPENTIN 100 MG CAPSULE PO SCH ×3 (08:13→16:47)
[2022-02-07] MEDS: NITROFURANTOIN/NITROFURAN MAC 100 MG CAPSULE PO SCH ×2 (08:13→20:35)
[2022-02-07] MEDS ORDERED: OLANZAPINE 5 MG TABLET PO SCH ×2 (09:00→17:00)
[2022-02-07] MEDS ORDERED: POLYVINYL ALCOHOL OPHT DROPS 15 ML BOTTLE EACHEYE PRN (09:45)
[2022-02-07] MEDS: LEVOTHYROXINE SODIUM 50 MCG TABLET PO SCH (11:30)
--- NOTE | 2022-02-07 15:49 | NUR ---
patient is up to yassine-chair, very restless and anxiety crying yelling on and off,responding to internal stimuli PRN medication given as ordered. encouraged to attend in group activity but unable to participated .patient with poor insight and poor judgement will continue close monitoring.
[2022-02-07 16:05] VITALS: BP 97/51
[2022-02-07] MEDS: OLANZAPINE 5 MG TABLET PO SCH ×2 (16:47→20:35)
[2022-02-07] MEDS: GABAPENTIN 300 MG CAPSULE PO SCH (20:35)
[2022-02-07] MEDS: TEMAZEPAM 7.5 MG CAPSULE PO PRN (21:18)
[2022-02-07 21:48] VITALS: BP 125/68
[2022-02-08] MEDS: LORAZEPAM 1 MG TABLET PO PRN ×2 (06:17→16:48)
[2022-02-08] MEDS: LEVOTHYROXINE SODIUM 50 MCG TABLET PO SCH (06:17)
[2022-02-08 07:57] VITALS: BP 118/53
[2022-02-08] MEDS: OXCARBAZEPINE 300 MG TABLET PO SCH ×4 (08:18→20:31)
[2022-02-08] MEDS: OLANZAPINE 5 MG TABLET PO SCH ×4 (08:19→20:31)
[2022-02-08] MEDS: GABAPENTIN 100 MG CAPSULE PO SCH ×3 (08:19→16:48)
[2022-02-08 16:07] VITALS: BP 111/46
--- NOTE | 2022-02-08 16:21 | NUR ---
patient i confused and disoriented , compliant with all po medication, asleep most of shift ,total acre to all ADLS,poor insight and poor judgement ,will continue close monitoring.
[2022-02-08] MEDS: ENSURE ENLIVE (VAN) 240 ML LIQUID PO SCH (16:49)
[2022-02-08 20:00] VITALS: BP 114/58
[2022-02-08] MEDS: GABAPENTIN 300 MG CAPSULE PO SCH (20:31)
[2022-02-09] MEDS: TEMAZEPAM 7.5 MG CAPSULE PO PRN ×2 (00:52→20:37)
[2022-02-09] MEDS: LORAZEPAM 1 MG TABLET PO PRN (06:05)
[2022-02-09] MEDS: LEVOTHYROXINE SODIUM 50 MCG TABLET PO SCH (06:05)
--- NOTE | 2022-02-09 06:47 | NUR ---
Patient slept for approx 9 hrs through the night, she was noted confused by calm. safety and fall precaution continue inb placed. She was given PO fluids and snacks. will continue to monitor.
[2022-02-09 07:44] VITALS: BP 121/62
[2022-02-09] MEDS: OXCARBAZEPINE 300 MG TABLET PO SCH ×4 (08:15→20:37)
[2022-02-09] MEDS: GABAPENTIN 100 MG CAPSULE PO SCH ×3 (08:15→16:17)
[2022-02-09] MEDS: ENSURE ENLIVE (VAN) 240 ML LIQUID PO SCH ×2 (08:16→16:19)
[2022-02-09] MEDS: OLANZAPINE 5 MG TABLET PO SCH ×4 (08:16→20:37)
[2022-02-09] MEDS: LORAZEPAM 0.5 MG TABLET PO SCH ×2 (12:42→16:18)
[2022-02-09] MEDS: ACETAMINOPHEN 325 MG TABLET PO PRN (15:28)
--- NOTE | 2022-02-09 15:38 | NUR ---
Pt. responds when calling her name but has been sleepy during the shift. Noted to be delusional. All need attended and met. compliance with the care given. Will continue monitoring.
[2022-02-09 16:07] VITALS: BP 120/97
[2022-02-09 20:34] VITALS: BP 129/70
[2022-02-09] MEDS: GABAPENTIN 300 MG CAPSULE PO SCH (20:37)
[2022-02-10] MEDS: ACETAMINOPHEN 325 MG TABLET PO PRN (02:27)
[2022-02-10] MEDS: LORAZEPAM 0.5 MG TABLET PO PRN (02:28)
--- NOTE | 2022-02-10 04:21 | NUR ---
GPS NOTES: Patient remains unable to care for self, in need for total assistance to perform ADL's. Patient is very confused, mumbling to herself, with episodes of crying and yelling. She can't be re-oriented to reality, as she constantly responding to internal stimuli. She can't hold meaningful conversations, unable to make her needs known. She was provided fluid and snacks requiring maximum assistance. Tolerated medications well. Prn temazepam and Klonopin given with effectivity. Safety and fall precautions observed.
[2022-02-10] MEDS: LEVOTHYROXINE SODIUM 50 MCG TABLET PO SCH (06:14)
[2022-02-10 07:30] VITALS: BP 124/54
[2022-02-10] MEDS: OXCARBAZEPINE 300 MG TABLET PO SCH ×4 (09:04→21:01)
[2022-02-10] MEDS: GABAPENTIN 100 MG CAPSULE PO SCH ×3 (09:04→16:32)
[2022-02-10] MEDS: OLANZAPINE 5 MG TABLET PO SCH ×4 (09:04→21:02)
[2022-02-10] MEDS: NITROFURANTOIN/NITROFURAN MAC 100 MG CAPSULE PO SCH ×2 (09:04→21:01)
[2022-02-10] MEDS: ENSURE ENLIVE (VAN) 240 ML LIQUID PO SCH ×2 (09:05→16:34)
[2022-02-10] MEDS: LORAZEPAM 0.5 MG TABLET PO SCH ×3 (09:05→16:33)
--- NOTE | 2022-02-10 14:44 | NUR ---
Patient is confused, disoriented, disorganized, forgetful, internal stimuli. A/O X 1 to self. Patient becomes combative with nursing care. Patient is compliant with medications. Reassurance given. Fall and safety precautions implemented.
--- NOTE | 2022-02-10 15:00 | NUR ---
Note pt. to be awake, restless and crying. Compliance with taking medications. All need attended and met. Will continue monitoring the resident.
[2022-02-10 16:40] VITALS: BP 126/87
[2022-02-10 20:10] VITALS: BP 104/58
[2022-02-10] MEDS: GABAPENTIN 300 MG CAPSULE PO SCH (21:01)
[2022-02-10] MEDS: TEMAZEPAM 7.5 MG CAPSULE PO PRN (21:01)
[2022-02-11] MEDS: ACETAMINOPHEN 325 MG TABLET PO PRN (03:17)
[2022-02-11] MEDS: LORAZEPAM 0.5 MG TABLET PO PRN (03:18)
[2022-02-11] MEDS: LEVOTHYROXINE SODIUM 50 MCG TABLET PO SCH (06:04)
[2022-02-11 07:30] VITALS: BP 137/63
[2022-02-11] MEDS: NITROFURANTOIN/NITROFURAN MAC 100 MG CAPSULE PO SCH ×2 (09:43→20:25)
[2022-02-11] MEDS: LORAZEPAM 0.5 MG TABLET PO SCH (09:44)
[2022-02-11] MEDS: OLANZAPINE 5 MG TABLET PO SCH ×4 (09:44→20:25)
[2022-02-11] MEDS: OXCARBAZEPINE 300 MG TABLET PO SCH ×4 (09:44→20:25)
[2022-02-11] MEDS: GABAPENTIN 100 MG CAPSULE PO SCH (09:44)
[2022-02-11] MEDS: ENSURE ENLIVE (VAN) 240 ML LIQUID PO SCH ×2 (09:45→17:17)
[2022-02-11] MEDS: SERTRALINE HCL 50 MG TABLET PO SCH ×2 (11:47→17:17)
[2022-02-11] MEDS: busPIRone 5 MG TABLET PO SCH ×2 (11:47→17:15)
--- NOTE | 2022-02-11 14:56 | NUR ---
Patient is irritable, confused, disoriented, disorganized, agitated and anxious at times, yelling and screaming non sense. Patient requires maximal assistance with ADL. A/O X 1 to person. Reassurance given. Fall and safety precautions implemented.
[2022-02-11 17:17] VITALS: BP 126/72
[2022-02-11 20:30] VITALS: BP_SYST 113; BP_SYST 13; BP_DIAS 68
--- NOTE | 2022-02-11 20:48 | NUR ---
GPS: Pt.is confused,disoriented and disorganized. Poor insight to present situation. Talks to self and is non-sensical. No facial grimacing of pain observed. Fluids taken adequately. No adverse reactions noted from atb. Fall precautions observed.
[2022-02-11] MEDS: TEMAZEPAM 7.5 MG CAPSULE PO PRN (22:06)
[2022-02-12] MEDS: LORAZEPAM 0.5 MG TABLET PO PRN (05:16)
--- NOTE | 2022-02-12 05:26 | NUR ---
GPS: Pt.is anxious at this time and with crying episodes. Constant re-direction and re-assurance provided. Ativan 0.5mg given PO. Will monitor effectiveness. Fall precautions observed.
[2022-02-12] MEDS: LEVOTHYROXINE SODIUM 50 MCG TABLET PO SCH (06:08)
[2022-02-12 07:30] VITALS: BP 127/80
[2022-02-12] MEDS: NITROFURANTOIN/NITROFURAN MAC 100 MG CAPSULE PO SCH (08:34)
[2022-02-12] MEDS: SERTRALINE HCL 50 MG TABLET PO SCH ×2 (08:34→17:00)
[2022-02-12] MEDS: OLANZAPINE 5 MG TABLET PO SCH ×4 (08:34→20:28)
[2022-02-12] MEDS: busPIRone 5 MG TABLET PO SCH ×4 (08:35→17:00)
[2022-02-12] MEDS: ENSURE ENLIVE (VAN) 240 ML LIQUID PO SCH ×2 (08:35→17:00)
[2022-02-12] MEDS: OXCARBAZEPINE 300 MG TABLET PO SCH ×5 (08:37→20:28)
[2022-02-12] MEDS: risperiDONE 0.5 MG TABLET PO SCH ×4 (10:17→17:00)
--- NOTE | 2022-02-12 16:06 | NUR ---
Received patient is up to yassine-chair, very restless and anxiety ,responding to internal stimuli .patient with poor insight and poor judgement , hold 1 p m schedule medication due to patient is too sedated ,placed patient back to bed ,vital sign stable will be continue close monitoring.
[2022-02-12 16:18] VITALS: BP 132/84
[2022-02-12 19:00] VITALS: BP 145/66
[2022-02-13] MEDS: LEVOTHYROXINE SODIUM 50 MCG TABLET PO SCH (06:09)
[2022-02-13 06:15] VITALS: BP 126/72
[2022-02-13 07:30] VITALS: BP 134/82
[2022-02-13] MEDS: risperiDONE 0.5 MG TABLET PO SCH (09:01)
[2022-02-13] MEDS: SERTRALINE HCL 50 MG TABLET PO SCH ×2 (09:01→17:13)
[2022-02-13] MEDS: busPIRone 5 MG TABLET PO SCH ×3 (09:02→17:14)
[2022-02-13] MEDS: OLANZAPINE 5 MG TABLET PO SCH ×4 (09:02→20:20)
[2022-02-13] MEDS: OXCARBAZEPINE 300 MG TABLET PO SCH ×4 (09:02→20:20)
[2022-02-13] MEDS: ENSURE ENLIVE (VAN) 240 ML LIQUID PO SCH ×4 (09:05→17:20)
[2022-02-13] MEDS: LORAZEPAM 0.5 MG TABLET PO PRN ×2 (10:50→18:30)
[2022-02-13] MEDS: risperiDONE 1 MG TABLET PO SCH ×2 (13:12→17:13)
--- NOTE | 2022-02-13 14:49 | NUR ---
Patient is restless, repetitive with words, disoriented, anxious. Ativan 0.5 mg given at 10:50, semi effective. Patient is compliant with medication. Patient is confused, patient states "Dakota, Dakota, Dakota. Who's Dakota?" Patient requires maximal assistance with ADL. Reassurance given. Fall and safety precautions implemented.
[2022-02-13 16:57] VITALS: BP 146/86
[2022-02-13 20:14] VITALS: BP 119/55
[2022-02-13] MEDS: TEMAZEPAM 7.5 MG CAPSULE PO PRN (20:58)
[2022-02-13] MEDS: ACETAMINOPHEN 325 MG TABLET PO PRN (21:06)
--- NOTE | 2022-02-14 04:55 | NUR ---
GPS NOTES: Remains to be dependent with staff in all aspect of care. She is confused, unable to hold a meaning conversation, and responding to internal stimuli. PRN Ativan given d/t anxiety and episodes of yelling. Prn tamazepam given. Slept 8 hours during shift. Frequent monitoring implemented. Good pericare provided. Safety and fall precautions left in place.
[2022-02-14] MEDS: ACETAMINOPHEN 325 MG TABLET PO PRN (05:55)
[2022-02-14] MEDS: LORAZEPAM 0.5 MG TABLET PO PRN (05:55)
[2022-02-14] MEDS: LEVOTHYROXINE SODIUM 50 MCG TABLET PO SCH (06:12)
[2022-02-14 07:29] VITALS: BP 107/66
[2022-02-14 07:51] LABS: PHOSPHOROUS 3.9 mg/dL (2.5-4.9); POTASSIUM 3.7 mmol/L (3.5-5.1)
[2022-02-14] MEDS: busPIRone 5 MG TABLET PO SCH ×3 (09:04→16:46)
[2022-02-14] MEDS: OXCARBAZEPINE 300 MG TABLET PO SCH ×4 (09:04→20:23)
[2022-02-14] MEDS: OLANZAPINE 5 MG TABLET PO SCH ×4 (09:05→20:23)
[2022-02-14] MEDS: SERTRALINE HCL 50 MG TABLET PO SCH ×2 (09:05→16:47)
[2022-02-14] MEDS: ENSURE ENLIVE (VAN) 240 ML LIQUID PO SCH ×3 (09:07→16:47)
[2022-02-14] MEDS: risperiDONE 1 MG TABLET PO SCH ×3 (09:07→16:46)
--- NOTE | 2022-02-14 10:19 | NUR ---
Pt received sitting in yassine chair in tv room. Pt confused and disoriented. Does not even respond to name. Noted talking to self, delusional and hallucinating. No aggressive or combative behavior noted. Compliant with medications at this time.
[2022-02-14 16:17] VITALS: BP 118/67
[2022-02-14 20:09] VITALS: BP 100/75
--- NOTE | 2022-02-14 20:47 | NUR ---
GPS: Pt.is less anxious right now and able to carry on a simple conversation with staff. Needs attended. Denies pain when asked. Reality re-orientation provided prn. Given bedtime snacks and consumed 100% of it. Re-directed and re-assured prn. Will continue to monitor.
[2022-02-14] MEDS: TEMAZEPAM 7.5 MG CAPSULE PO PRN (23:27)
[2022-02-15] MEDS: LORAZEPAM 0.5 MG TABLET PO PRN ×3 (02:34→20:10)
[2022-02-15] MEDS: LEVOTHYROXINE SODIUM 50 MCG TABLET PO SCH (06:14)
[2022-02-15 07:39] VITALS: BP 131/73
[2022-02-15] MEDS: risperiDONE 1 MG TABLET PO SCH ×3 (08:20→16:53)
[2022-02-15] MEDS: SERTRALINE HCL 50 MG TABLET PO SCH ×2 (08:20→16:53)
[2022-02-15] MEDS: OLANZAPINE 5 MG TABLET PO SCH ×4 (08:20→20:10)
[2022-02-15] MEDS: OXCARBAZEPINE 300 MG TABLET PO SCH ×4 (08:20→20:10)
[2022-02-15] MEDS: busPIRone 5 MG TABLET PO SCH ×3 (08:20→16:53)
[2022-02-15] MEDS: ENSURE ENLIVE (VAN) 240 ML LIQUID PO SCH ×3 (08:21→16:56)
[2022-02-15 16:03] VITALS: BP 123/68
--- NOTE | 2022-02-15 17:31 | NUR ---
Received patient up to yassine-chair confused and disoriented , compliant with all po medication, asleep most of shift ,total acre to all ADLS,poor insight and poor judgement ,will continue close monitoring.
--- NOTE | 2022-02-15 18:10 | NUR ---
patient attempted to get out of bed without assisted , bed alarm was alarming assisted patient to slowly sit on on the floor to prevent from fall. got patient up to yassine-chair near to nurse station for close monitoring.
[2022-02-15 19:26] VITALS: BP 122/69
[2022-02-15] MEDS: ACETAMINOPHEN 325 MG TABLET PO PRN (20:10)
[2022-02-16] MEDS: LEVOTHYROXINE SODIUM 50 MCG TABLET PO SCH (07:00)
[2022-02-16 07:41] VITALS: BP_SYST 118; BP_SYST 128; BP_DIAS 68
[2022-02-16] MEDS: SERTRALINE HCL 50 MG TABLET PO SCH ×2 (08:40→16:31)
[2022-02-16] MEDS: OLANZAPINE 5 MG TABLET PO SCH ×4 (08:40→20:37)
[2022-02-16] MEDS: OXCARBAZEPINE 300 MG TABLET PO SCH ×4 (08:40→20:37)
[2022-02-16] MEDS: risperiDONE 1 MG TABLET PO SCH ×3 (08:40→16:33)
[2022-02-16] MEDS: busPIRone 5 MG TABLET PO SCH ×3 (08:40→16:31)
[2022-02-16] MEDS: LORAZEPAM 0.5 MG TABLET PO PRN ×3 (08:42→20:43)
[2022-02-16] MEDS: ENSURE ENLIVE (VAN) 240 ML LIQUID PO SCH ×3 (08:43→16:32)
[2022-02-16 15:34] VITALS: BP 109/50
[2022-02-16 19:54] VITALS: BP 131/77
--- NOTE | 2022-02-16 20:50 | NUR ---
PAtient sitting in gerichair in hallway nest to nursing station. Patient confused, experiencing VH and AH, expressing tangential, flight of ideas. Pt stating "See that chepe with the blonde hair?" He took everything!" Gave Ativan po prn. Will continue to monitor.
[2022-02-17] MEDS: LEVOTHYROXINE SODIUM 50 MCG TABLET PO SCH (06:50)
[2022-02-17] MEDS: LORAZEPAM 0.5 MG TABLET PO PRN (06:50)
[2022-02-17 07:30] VITALS: BP 133/59
[2022-02-17] MEDS: busPIRone 5 MG TABLET PO SCH ×3 (09:56→16:57)
[2022-02-17] MEDS: OLANZAPINE 5 MG TABLET PO SCH ×4 (09:57→20:12)
[2022-02-17] MEDS: OXCARBAZEPINE 300 MG TABLET PO SCH ×4 (09:57→20:12)
[2022-02-17] MEDS: risperiDONE 1 MG TABLET PO SCH ×3 (09:57→16:56)
[2022-02-17] MEDS: SERTRALINE HCL 50 MG TABLET PO SCH ×2 (09:58→16:56)
[2022-02-17] MEDS: ENSURE ENLIVE (VAN) 240 ML LIQUID PO SCH ×3 (09:58→16:57)
--- NOTE | 2022-02-17 16:18 | NUR ---
Patient is confused, disoriented, disorganized, anxious, restless. Patient states "They are stealing from us" Patient repeats the same phrase more than 20 times. Patient states "Help, help, help" Patient is forgetful. A/O X 1 to self. Patient requires maximal assistance with ADL. Reality orientation provided. Fall and safety precautions implemented.
[2022-02-17 16:55] VITALS: BP 91/58
--- NOTE | 2022-02-17 20:55 | NUR ---
GPS: Pt.was anxious,restless,hyper -verbal during shift change but now resting comfortably at this time. Due bedtime meds.given earlier and vikki.well. Re-directed and re-assured frequently. Fall precautions observed. Needs attended.
[2022-02-17 20:58] VITALS: BP 121/58
[2022-02-18] MEDS: TEMAZEPAM 7.5 MG CAPSULE PO PRN ×2 (01:18→21:40)
--- NOTE | 2022-02-18 01:20 | NUR ---
GPS: Pt.woke up started feeling anxious and restless. Rambling non-stop saying "I hit my own face",repeatedly. Difficult to be re-directed. Non-sensical/hyperverbal. Restoril 7.5 mg given PO. Quiet environment provided to facilitate sleep. Will continue to monitor. Fall precautions observed.
[2022-02-18] MEDS: ACETAMINOPHEN 325 MG TABLET PO PRN (01:22)
[2022-02-18] MEDS: LORAZEPAM 0.5 MG TABLET PO PRN (05:32)
[2022-02-18] MEDS: LEVOTHYROXINE SODIUM 50 MCG TABLET PO SCH (06:02)
[2022-02-18 07:30] VITALS: BP 108/50
[2022-02-18] MEDS: busPIRone 5 MG TABLET PO SCH ×2 (08:37→13:14)
[2022-02-18] MEDS: SERTRALINE HCL 50 MG TABLET PO SCH (08:37)
[2022-02-18] MEDS: OXCARBAZEPINE 300 MG TABLET PO SCH ×4 (08:38→20:18)
[2022-02-18] MEDS: ENSURE ENLIVE (VAN) 240 ML LIQUID PO SCH ×3 (08:38→16:55)
[2022-02-18] MEDS: risperiDONE 1 MG TABLET PO SCH ×2 (08:38→13:14)
[2022-02-18] MEDS: OLANZAPINE 5 MG TABLET PO SCH ×2 (08:38→13:14)
[2022-02-18] MEDS: ALPRAZOLAM 0.5 MG TABLET PO SCH ×2 (14:04→16:53)
--- NOTE | 2022-02-18 15:45 | NUR ---
Patient is anxious, restless, agitated, hyperverbal, repetitive, confused, disoriented, disorganized, incoherent. Patient is compliant with medications. Requires total care. Emotional support provided. Fall and safety precautions implemented.
[2022-02-18 16:21] VITALS: BP 109/72
[2022-02-18] MEDS ORDERED: busPIRone 5 MG TABLET PO SCH (17:00)
[2022-02-18] MEDS ORDERED: OLANZAPINE 5 MG TABLET PO SCH (17:00)
[2022-02-18] MEDS ORDERED: SERTRALINE HCL 50 MG TABLET PO SCH (17:00)
[2022-02-18] MEDS ORDERED: OLANZAPINE 2.5 MG TABLET PO SCH (17:00)
[2022-02-18] MEDS ORDERED: risperiDONE 1 MG TABLET PO SCH (17:00)
[2022-02-18 20:10] VITALS: BP 133/66
[2022-02-18] MEDS: AMANTADINE HCL 100 MG CAPSULE PO SCH (20:18)
[2022-02-19] MEDS: LORAZEPAM 0.5 MG TABLET PO PRN ×2 (05:46→22:52)
[2022-02-19] MEDS: LEVOTHYROXINE SODIUM 50 MCG TABLET PO SCH (06:10)
--- NOTE | 2022-02-19 06:12 | NUR ---
GPS: Pt.slept 9.15 last night. Now awake and anxious,restless,agitated,confused,disoriented and repetitive. Frequent re-direction and re-assurance provided. Safe environment provided. Needs attended. Will continue to monitor.
[2022-02-19 07:30] VITALS: BP 103/62
[2022-02-19] MEDS: ALPRAZOLAM 0.5 MG TABLET PO SCH ×3 (08:33→16:45)
[2022-02-19] MEDS: AMANTADINE HCL 100 MG CAPSULE PO SCH ×2 (08:33→20:21)
[2022-02-19] MEDS: ENSURE ENLIVE (VAN) 240 ML LIQUID PO SCH ×3 (08:34→16:45)
[2022-02-19] MEDS: risperiDONE 2 MG TABLET PO SCH ×3 (08:34→16:44)
[2022-02-19] MEDS: OXCARBAZEPINE 300 MG TABLET PO SCH ×4 (08:34→20:21)
--- NOTE | 2022-02-19 10:48 | NUR ---
DOMINIQUE Family Contact: DOMINIQUE spoke with patient's femjjpn-rd-vso/conservator, Ventura ([phone]) regarding pt's discharge plan. DOMINIQUE informed Ventura that pt does not have a discharge date yet. Ventura stated he is grateful for the update.
[2022-02-19] MEDS ORDERED: MAGNESIUM HYDROXIDE 30 ML LIQUID UDC PO PRN (14:15)
--- NOTE | 2022-02-19 14:31 | NUR ---
DOMINIQUE Discharge Update: DOMINIQUE spoke with content coordinator, Radha ([phone]) [place] [address] ([phone]) who confirmed pt's return upon discharge.
--- NOTE | 2022-02-19 14:42 | NUR ---
DOMINIQUE Discharge Update: DOMINIQUE spoke with inventory coordinator, Radha ([phone]) at [place] [id number] regarding pt's discharge. DOMINIQUE stated there is no discharge yet. Radha is aware and ready for the pt upon discharge.
--- NOTE | 2022-02-19 14:50 | NUR ---
Patient is restless, hyperverbal, confused, repeating the same words, disoriented. Patient states "Call my grandma. Is this Grandma's house?" "Grandma, I'm sick!" Patient is disorganized, poor safety awareness. A/O X 1 to self. Emotional support provided. Fall and safety precautions implemented.
[2022-02-19 20:10] VITALS: BP 117/53
--- NOTE | 2022-02-19 20:32 | NUR ---
GPS: Remains confused, disorganized,restless and repetitive. Constant re-direction provided. Poor insight to present situation. Fall precautions observed. Compliant with her meds. Needs attended.
[2022-02-19] MEDS: TEMAZEPAM 7.5 MG CAPSULE PO PRN (21:09)
[2022-02-19] MEDS: ACETAMINOPHEN 325 MG TABLET PO PRN (22:52)
--- NOTE | 2022-02-19 22:54 | NUR ---
GPS: Pt.woke up and is currently restless. Hyperverbal and constantly repeating her sentences non-stop. Non-sensical and disorganized. Repositioned for comfort. Diaper dry at this time. Re-directed constantly. Ativan 0.5 mg given PO. Will monitor effectiveness. Bed alarm on for safety.
[2022-02-20] MEDS: LEVOTHYROXINE SODIUM 50 MCG TABLET PO SCH (06:15)
[2022-02-20] MEDS: LORAZEPAM 0.5 MG TABLET PO PRN (06:34)
[2022-02-20 07:30] VITALS: BP 97/51
[2022-02-20] MEDS: ALPRAZOLAM 0.5 MG TABLET PO SCH ×3 (08:38→17:10)
[2022-02-20] MEDS: risperiDONE 2 MG TABLET PO SCH ×3 (08:38→17:09)
[2022-02-20] MEDS: OXCARBAZEPINE 300 MG TABLET PO SCH ×4 (08:38→20:24)
[2022-02-20] MEDS: ENSURE ENLIVE (VAN) 240 ML LIQUID PO SCH ×3 (08:39→17:10)
[2022-02-20] MEDS: AMANTADINE HCL 100 MG CAPSULE PO SCH ×2 (08:43→20:24)
--- NOTE | 2022-02-20 11:34 | NUR ---
DOMINIQUE Discharge Update: DOMINIQUE contacted process coordinator, Radha ([phone]) at [address] [address] and left a voicemail informing Radha of pt's discharge date by the psychiatrist for next Wednesday.
--- NOTE | 2022-02-20 16:19 | NUR ---
Received patient up to yassine-chair confused and disoriented , compliant with all po medication, yelling and screaming at time PRN medication given as ordered ,total care to all ADLS,poor insight and poor judgement ,will continue close monitoring.
[2022-02-20 17:00] VITALS: BP 137/88
[2022-02-20 21:26] VITALS: BP 129/88
[2022-02-21] MEDS: LORAZEPAM 0.5 MG TABLET PO PRN ×2 (02:58→06:45)
--- NOTE | 2022-02-21 02:59 | NUR ---
patient is very agitated. screaming loud and to getting out of bed. ativan 0.5 mg po given for anxiety.
--- NOTE | 2022-02-21 03:59 | NUR ---
patient is calm now. prn effective for agitation.
--- NOTE | 2022-02-21 05:53 | NUR ---
GPS: Remain confused and disoriented , compliant with all po medication, yelling and screaming at time PRN medication given as ordered ,assisted with adl's. patient is total care. ,poor insight and poor judgement ,slept 6.45 hrs through the night. will continue close monitoring.
[2022-02-21] MEDS: LEVOTHYROXINE SODIUM 50 MCG TABLET PO SCH (06:25)
--- NOTE | 2022-02-21 06:46 | NUR ---
GPS: PATIENT IS VERY AGITATED, GETTING OUT OF MONIQUE CHAIR AND CRYING. ATIVAN 0.5 MG PO PRN GIVEN FOR AGITATION.
--- NOTE | 2022-02-21 07:15 | NUR ---
patient is calm now. prn effective for anxiety.
[2022-02-21 07:40] VITALS: BP 108/75
[2022-02-21] MEDS: ENSURE ENLIVE (VAN) 240 ML LIQUID PO SCH ×3 (09:00→17:08)
[2022-02-21] MEDS: ALPRAZOLAM 0.5 MG TABLET PO SCH ×3 (11:31→17:00)
[2022-02-21] MEDS: risperiDONE 2 MG TABLET PO SCH ×3 (11:31→17:00)
[2022-02-21] MEDS: OXCARBAZEPINE 300 MG TABLET PO SCH ×4 (11:31→20:14)
[2022-02-21] MEDS: AMANTADINE HCL 100 MG CAPSULE PO SCH ×2 (11:32→20:14)
[2022-02-21 11:58] LABS: *BILIRUBIN,URIN NEGATIVE (NEGATIVE); *BLOOD, URINE NEGATIVE (NEGATIVE); *CLARITY,URINE CLOUDY (CLEAR); *COLOR,URINE Other (YELLOW); *KETONES,URINE NEGATIVE (NEGATIVE); *UROBILINOGEN,URINE 0.2 E.U./dl (NORMAL); LEUKOCYTE ESTERASE ,URINE TRACE (NEGATIVE); NITRITE, URINE NEGATIVE (NEGATIVE); UGLUCOSE NEGATIVE (NEGATIVE)
[2022-02-21 16:17] VITALS: BP 93/45
[2022-02-21 18:55] LABS: BACTERIA,URINE MANY /HPF (NONE SEEN); RBC,URINE 0-3 /HPF (0-3); SQUAMOUS EPITHELIAL CELL,UR FEW /HPF (NONE SEEN); URINE AMORPHOUS URATE MODERATE /HPF; WBC,URINE 0-3 /HPF (0-3)
[2022-02-21 20:00] VITALS: BP 116/69
[2022-02-21] MEDS: TEMAZEPAM 7.5 MG CAPSULE PO PRN (23:23)
--- NOTE | 2022-02-22 05:45 | NUR ---
GPS: Remain confused and disoriented , compliant with all po medication. no behavior problem noted at this time. assisted with adl's. patient is total care. poor insight and poor judgement , will continue close monitoring.
[2022-02-22] MEDS: LEVOTHYROXINE SODIUM 50 MCG TABLET PO SCH (06:09)
--- NOTE | 2022-02-22 06:22 | NUR ---
GPS: SLEPT 7.15 HRS THROUGH THE NIGHT. RESTORIL 7.5 MG PO PRN GIVEN.
[2022-02-22 08:24] VITALS: BP 116/66
[2022-02-22] MEDS: AMANTADINE HCL 100 MG CAPSULE PO SCH ×2 (09:21→20:15)
[2022-02-22] MEDS: ENSURE ENLIVE (VAN) 240 ML LIQUID PO SCH ×3 (09:21→17:00)
[2022-02-22] MEDS: ALPRAZOLAM 0.5 MG TABLET PO SCH ×3 (09:21→17:34)
[2022-02-22] MEDS: risperiDONE 2 MG TABLET PO SCH ×3 (09:21→17:34)
[2022-02-22] MEDS: OXCARBAZEPINE 300 MG TABLET PO SCH ×4 (09:21→20:14)
[2022-02-22 16:04] VITALS: BP 101/62
[2022-02-22] MEDS: AMOXICILLIN-CLAVUL 500-125MG TABLET PO SCH ×2 (17:34→20:15)
[2022-02-22 19:58] VITALS: BP 133/64
[2022-02-22] MEDS: LORAZEPAM 0.5 MG TABLET PO PRN (19:58)
[2022-02-22] MEDS: ACETAMINOPHEN 325 MG TABLET PO PRN (19:58)
--- NOTE | 2022-02-22 20:00 | NUR ---
RECEIVED PATIENT SITTING IN A TYRON CHAIR IN THE HALLWAY, FOR SAFETY, NEAR THE NURSING STATION. SHE IS NOTED A/O X 1. SHE IS ANXIOUS, AGITATED. SHE IS SAYING THE SAME WORDS AND PHRASES OVER AND OVER AND OVER AGAIN. HYPERVERBAL WITH DISORGANIZED SPEECH. SHE IS UNABLE TO BE REDIRECTED. ATIVAN 0.5MG PO PRN WAS GIVEN. PATIENT V/S ARE STABLE. SHE WAS GIVEN PO FLUIDS AND SNACKS. ALL HER NEEDS WERE MET. SHE IS REASSURED FOR HER SAFETY. SAFETY AND FALL PRECAUTIONS ARE IN PLACE. WILL CONTINUE TO MONITOR.
[2022-02-22] MEDS: REMEDY ESSENTIAL ZINC PASTE 113 GM TOP SCH (20:15)
[2022-02-22] MEDS: TEMAZEPAM 7.5 MG CAPSULE PO PRN (21:24)
--- NOTE | 2022-02-22 21:30 | NUR ---
patient was given temazepam 7.5mg PO PRN about one hr earlier and she is now sleeping. Will continue to monitor.
[2022-02-23] MEDS: LORAZEPAM 0.5 MG TABLET PO PRN ×3 (06:01→20:24)
[2022-02-23] MEDS: LEVOTHYROXINE SODIUM 50 MCG TABLET PO SCH (06:01)
--- NOTE | 2022-02-23 06:27 | NUR ---
patient slept for approx 8 hrs through the night. No aggressive or combative bx noted or reported during the shift. she continue reaping words and phrases. She was observed restless this morning as well. She was given Ativan 0.5mg PO prn. she remains compliant with her medication regiment diet and care. will endorse accordingly,
[2022-02-23 07:43] VITALS: BP 123/44
[2022-02-23] MEDS: AMANTADINE HCL 100 MG CAPSULE PO SCH ×2 (08:27→20:24)
[2022-02-23] MEDS: ALPRAZOLAM 0.5 MG TABLET PO SCH ×3 (08:27→16:28)
[2022-02-23] MEDS: OXCARBAZEPINE 300 MG TABLET PO SCH ×4 (08:27→20:24)
[2022-02-23] MEDS: REMEDY ESSENTIAL ZINC PASTE 113 GM TOP SCH ×2 (08:28→21:23)
[2022-02-23] MEDS: risperiDONE 2 MG TABLET PO SCH ×3 (08:29→16:28)
[2022-02-23] MEDS: AMOXICILLIN-CLAVUL 500-125MG TABLET PO SCH ×2 (08:30→20:24)
[2022-02-23] MEDS: ENSURE ENLIVE (VAN) 240 ML LIQUID PO SCH ×3 (08:31→16:29)
--- NOTE | 2022-02-23 10:18 | NUR ---
SNF Referral: SW faxed patient's updated referral packet including: History and Physical, Consultation, Progress Notes, Medication List and Labs to the following facilities for review and possible longterm placement: [facility] ([phone]) [address] [place] [address] and spoke to Radha in admissions who is aware of pt's return to their facility on 02/24/22.
--- NOTE | 2022-02-23 10:23 | NUR ---
DOMINIQUE Family Contact: DOMINIQUE spoke with patient's fxypctd-ef-wfq/conservator, Ventura ([phone]) and informed Ventura that pt is cleared for discharge to return to [facility] tomorrow, Wednesday02/24/22. Ventura is aware and agreeable.
[2022-02-23 11:24] LABS: HEMATOCRIT 35.5 % (31.2-41.9); MEAN CORPUSCULAR HEMOGLOBIN 29.5 uug (24.7-32.8); MEAN CORPUSCULAR VOLUME 88.2 fL (75.5-95.3); PLATELET COUNT (AUTO) 413 K/uL (179-408)
[2022-02-23 11:37] LABS: BILIRUBIN,TOTAL 0.3 mg/dL (0.2-1.0); POTASSIUM 3.8 mmol/L (3.5-5.1); TOTAL PROTEIN, SERUM 6.8 g/dL (6.4-8.2)
[2022-02-23 15:44] VITALS: BP 91/35
--- NOTE | 2022-02-23 16:16 | NUR ---
patient up to yassine-chair confused and disoriented , compliant with all po medication, crying and talk to self constantly PRN medication given as ordered ,total care to all ADLS,poor insight and poor judgement ,will continue close monitoring.
[2022-02-23 20:21] VITALS: BP 121/85
[2022-02-23] MEDS: TEMAZEPAM 7.5 MG CAPSULE PO PRN (22:55)
[2022-02-23] MEDS: ACETAMINOPHEN 325 MG TABLET PO PRN (22:56)
--- NOTE | 2022-02-24 00:17 | NUR ---
Patient had loose BM twice this shift. Cleaned, changed diapers, and clothing.
[2022-02-24] MEDS: LORAZEPAM 0.5 MG TABLET PO PRN (05:37)
[2022-02-24] MEDS: ACETAMINOPHEN 325 MG TABLET PO PRN (05:37)
[2022-02-24] MEDS: LEVOTHYROXINE SODIUM 50 MCG TABLET PO SCH (06:25)
--- NOTE | 2022-02-24 06:47 | NUR ---
Patient remains mostly confused and disoriented making non-stop, and repeated statements such as "I can't stand it!" "Please take it off!" "I want to go home!" Will continue to monitor.
[2022-02-24 07:30] VITALS: BP 114/63
[2022-02-24] MEDS: OXCARBAZEPINE 300 MG TABLET PO SCH (08:15)
[2022-02-24] MEDS: ALPRAZOLAM 0.5 MG TABLET PO SCH (08:16)
[2022-02-24] MEDS: risperiDONE 2 MG TABLET PO SCH (08:16)
[2022-02-24] MEDS: AMOXICILLIN-CLAVUL 500-125MG TABLET PO SCH (08:16)
[2022-02-24] MEDS: AMANTADINE HCL 100 MG CAPSULE PO SCH (08:16)
[2022-02-24] MEDS: ENSURE ENLIVE (VAN) 240 ML LIQUID PO SCH (08:17)
[2022-02-24] MEDS: REMEDY ESSENTIAL ZINC PASTE 113 GM TOP SCH (08:17)
--- NOTE | 2022-02-24 11:20 | NUR ---
DOMINIQUE Discharge Note: Pt will be discharged to [facility] ([phone]) [address] [place] [address] via Ambulance transportation at 11AM. Johana FOX, spoke with admin coordinator, Radha ([phone]), at the facility who states they are ready to accept the patient today. Pt is aware and agreeable with discharge plan. Pt is alert and oriented x2, is unable to plan for self-care at this time. However, pt is willing to accept care at SNF. Pt denies any suicidal or homicidal ideation. Pt will follow-up at the facility with Psychiatrist, Dr. Muir and Director Corporate Security, Dr. Way. Pt presents with calm mood and congruent affect. PHARMACY: [facility]: ([phone]) [address], [address], [place] [address].
--- NOTE | 2022-02-24 11:25 | NUR ---
Received orders to discharge this patient to [facility]. Patient was agreeable with discharge plans, but unable to sign discharge documents. All belongings were returned to patient. Patient denies SI/HI AH/VH, SOB, pain or any discomfort. Patient left the unit at 11:20 by [facility]. Emotional support provided. Fall and safety precautions implemented.
== END 2022-02-24 11:20 | DRG 885 ==
LOC: ER 01:24 → GPS 03:30
PROVIDERS: ADMIT Psychiatry & Neurology Psychosomatic Medicine; ATTEND Internal Medicine
DX: F25.0 Schizoaffective disorder, bipolar type (principal); F03.911 Unspecified dementia, unspecified severity, with agitation; N39.0 Urinary tract infection, site not specified; F03.93 Unspecified dementia, unspecified severity, with mood disturbance; B96.20 Unspecified Escherichia coli [E. coli] as the cause of diseases classified elsewhere; Z20.822 Contact with and (suspected) exposure to COVID-19; Z86.16 Personal history of COVID-19; E03.9 Hypothyroidism, unspecified; Z79.899 Other long term (current) drug therapy; G62.9 Polyneuropathy, unspecified; Z87.440 Personal history of urinary (tract) infections; F60.3 Borderline personality disorder; F29 Unspecified psychosis not due to a substance or known physiological condition
CPT/HCPCS: 36415; 71045; 83605; 83735; 84100; 85025; 87077; 87086; 93005; A4663; G0480; J1200; J1630; J2060; J3420

== ENCOUNTER 2022-03-12 21:35 | Inpatient (IN) | payer MEDICARE, BC ==
[~2022-03-12] VITALS: Ht 167.6 cm; Wt 60.8 kg
[~2022-03-12 21:35] MED LIST changes: -GABA100C PO; -MAG-55 PO; -MAGN400O6 PO; -NA P133E RC; +POLY15DR27 EACHEYE
[2022-03-12] MEDS ORDERED: HALOPERIDOL LACTATE 5 MG/1 ML VIAL IM ONE (21:45)
[2022-03-12] MEDS ORDERED: HALOPERIDOL LACTATE 5 MG/1 ML VIAL ONE (22:00)
[2022-03-12 22:08] LABS: HEMATOCRIT 38.1 % (31.2-41.9); MEAN CORPUSCULAR VOLUME 89.5 fL (75.5-95.3); PLATELET COUNT (AUTO) 283 K/uL (179-408)
[2022-03-12 22:09] LABS: CARBON DIOXIDE 30 mmol/L (21-32); CHLORIDE 107 mmol/L (98-107); CREATININE 1.1 mg/dL (0.6-1.3); GLUCOSE 161 mg/dL (74-106); POTASSIUM 3.9 mmol/L (3.5-5.1); UREA NITROGEN, BLOOD 22 mg/dL (7-18)
[2022-03-12] MEDS ORDERED: NA P133E RC (22:14)
[2022-03-12] MEDS ORDERED: DIVA125C2 PO ×2 (22:14)
[2022-03-12] MEDS ORDERED: OXCA300T4 PO (22:14)
[2022-03-12] MEDS ORDERED: MAGN400O6 PO (22:14)
[2022-03-12] MEDS ORDERED: ALPR0.255 PO (22:14)
[2022-03-12] MEDS ORDERED: POLY15DR27 EACHEYE (22:14)
[2022-03-12] MEDS ORDERED: AMAN100T PO (22:14)
[2022-03-12] MEDS ORDERED: RISP2TAB5 PO (22:14)
[2022-03-12] MEDS ORDERED: MAG355OR18 PO (22:14)
[2022-03-12 22:19] LABS: ETHANOL < 3 MG/DL (0-0)
[2022-03-12 22:26] LABS: ALANINE AMINOTRANSFERASE 32 U/L (14-59); ALKALINE PHOSPHATASE 107 U/L (50-136); ASPARTATE AMINOTRANSFERASE 17 U/L (15-37); BILIRUBIN,DIRECT 0.2 mg/dL (0.0-0.2); BILIRUBIN,TOTAL 0.5 mg/dL (0.2-1.0); TOTAL PROTEIN, SERUM 7.2 g/dL (6.4-8.2)
[2022-03-12 22:28] LABS: ACETAMINOPHEN < 2.0 ug/mL (10-30); THYROID STIMULATING HORMONE 1.568 mIU/mL (0.358-3.740)
[2022-03-13] MEDS ORDERED: LORAZEPAM 0.5 MG TABLET PO PRN (01:15)
[2022-03-13] MEDS ORDERED: MAG HYDROX/AL HYDROX/SIMETH 30 ML LIQUID UDC PO PRN (01:15)
[2022-03-13] MEDS: TEMAZEPAM 7.5 MG CAPSULE PO PRN (02:23)
[2022-03-13 03:42] VITALS: BP 139/70
[2022-03-13] MEDS ORDERED: LORAZEPAM 2 MG/1 ML VIAL IM ONE ×2 (05:15→07:00)
[2022-03-13] MEDS ORDERED: OLANZAPINE 10 MG VIAL IM ONE ×2 (05:15→07:00)
[2022-03-13 07:30] VITALS: BP 93/46
[2022-03-13] MEDS: ALPRAZOLAM 0.5 MG TABLET PO SCH ×3 (11:37→18:01)
[2022-03-13] MEDS: risperiDONE 2 MG TABLET PO SCH ×3 (11:37→18:01)
[2022-03-13] MEDS: OXCARBAZEPINE 300 MG TABLET PO SCH ×3 (11:37→18:01)
[2022-03-13] MEDS: HYDROXYZINE PAMOATE 25 MG CAPSULE PO PRN (15:41)
[2022-03-13 16:00] VITALS: BP 127/58
[2022-03-13] MEDS: AMANTADINE HCL 100 MG CAPSULE PO SCH (18:03)
[2022-03-13 20:26] VITALS: BP 114/51
[2022-03-13 20:46] VITALS: BP 114/51
[2022-03-13] MEDS: POLYVINYL ALCOHOL OPHT DROPS 15 ML BOTTLE EACHEYE SCH (22:07)
[2022-03-14] MEDS: HYDROXYZINE PAMOATE 25 MG CAPSULE PO PRN ×3 (02:32→21:09)
[2022-03-14] MEDS: POLYVINYL ALCOHOL OPHT DROPS 15 ML BOTTLE EACHEYE SCH ×3 (05:48→22:00)
[2022-03-14] MEDS: LEVOTHYROXINE SODIUM 50 MCG TABLET PO SCH (06:46)
[2022-03-14 07:51] VITALS: BP 135/57
[2022-03-14] MEDS: OXCARBAZEPINE 300 MG TABLET PO SCH ×3 (08:04→16:07)
[2022-03-14] MEDS: risperiDONE 2 MG TABLET PO SCH ×3 (08:04→16:07)
[2022-03-14] MEDS: ALPRAZOLAM 0.5 MG TABLET PO SCH ×3 (08:04→16:07)
[2022-03-14] MEDS: AMANTADINE HCL 100 MG CAPSULE PO SCH ×2 (08:04→16:09)
[2022-03-14 08:56] LABS: THYROID STIMULATING HORMONE 2.588 mIU/mL (0.358-3.740)
[2022-03-14 10:51] LABS: CREATININE 0.8 mg/dL (0.6-1.3); MAGNESIUM 2.4 mg/dL (1.8-2.4); PHOSPHOROUS 3.8 mg/dL (2.5-4.9); POTASSIUM 4.7 mmol/L (3.5-5.1)
[2022-03-14 10:54] LABS: HEMATOCRIT 41.3 % (31.2-41.9); MEAN CORPUSCULAR HEMOGLOBIN 29.2 uug (24.7-32.8); MEAN CORPUSCULAR VOLUME 89.6 fL (75.5-95.3); PLATELET COUNT (AUTO) 228 K/uL (179-408)
[2022-03-14] MEDS: ACETAMINOPHEN 325 MG TABLET PO PRN ×2 (15:35→21:09)
[2022-03-14 16:20] VITALS: BP 112/49
[2022-03-14 20:01] VITALS: BP 114/51
[2022-03-15] MEDS: POLYVINYL ALCOHOL OPHT DROPS 15 ML BOTTLE EACHEYE SCH ×3 (06:00→22:00)
[2022-03-15] MEDS: LEVOTHYROXINE SODIUM 50 MCG TABLET PO SCH (06:38)
[2022-03-15] MEDS: HYDROXYZINE PAMOATE 25 MG CAPSULE PO PRN ×3 (06:38→20:15)
[2022-03-15 07:53] VITALS: BP 97/52
[2022-03-15] MEDS: AMANTADINE HCL 100 MG CAPSULE PO SCH ×2 (08:47→16:35)
[2022-03-15] MEDS: ALPRAZOLAM 0.5 MG TABLET PO SCH ×3 (08:47→16:35)
[2022-03-15] MEDS: OXCARBAZEPINE 300 MG TABLET PO SCH ×3 (08:47→16:35)
[2022-03-15] MEDS: risperiDONE 2 MG TABLET PO SCH ×3 (08:47→16:35)
[2022-03-15] MEDS: ACETAMINOPHEN 325 MG TABLET PO PRN ×2 (14:53→20:14)
[2022-03-15 16:42] VITALS: BP 103/55
[2022-03-15] MEDS: MAGNESIUM HYDROXIDE 30 ML LIQUID UDC PO PRN (17:33)
[2022-03-15 19:53] VITALS: BP 101/52
[2022-03-15] MEDS: TEMAZEPAM 7.5 MG CAPSULE PO PRN (22:35)
[2022-03-16] MEDS: HYDROXYZINE PAMOATE 25 MG CAPSULE PO PRN ×3 (04:03→21:34)
[2022-03-16] MEDS: ACETAMINOPHEN 325 MG TABLET PO PRN ×2 (04:03→14:41)
[2022-03-16] MEDS: MAGNESIUM HYDROXIDE 30 ML LIQUID UDC PO PRN (04:26)
[2022-03-16] MEDS: POLYVINYL ALCOHOL OPHT DROPS 15 ML BOTTLE EACHEYE SCH ×3 (06:00→22:00)
[2022-03-16] MEDS: LEVOTHYROXINE SODIUM 50 MCG TABLET PO SCH (06:39)
[2022-03-16 07:40] VITALS: BP 137/54
[2022-03-16] MEDS: OXCARBAZEPINE 300 MG TABLET PO SCH ×3 (08:33→16:44)
[2022-03-16] MEDS: AMANTADINE HCL 100 MG CAPSULE PO SCH ×2 (08:33→16:44)
[2022-03-16] MEDS: risperiDONE 2 MG TABLET PO SCH ×3 (08:33→16:44)
[2022-03-16] MEDS: ALPRAZOLAM 0.5 MG TABLET PO SCH ×3 (08:33→16:44)
[2022-03-16] MEDS: GLUCERNA SHAKE 237 ML CAN PO SCH (08:34)
[2022-03-16 16:26] VITALS: BP 92/44
[2022-03-16 19:39] VITALS: BP 113/48
[2022-03-17] MEDS: ACETAMINOPHEN 325 MG TABLET PO PRN ×2 (03:12→13:41)
[2022-03-17] MEDS: HYDROXYZINE PAMOATE 25 MG CAPSULE PO PRN ×3 (03:12→20:02)
[2022-03-17] MEDS: POLYVINYL ALCOHOL OPHT DROPS 15 ML BOTTLE EACHEYE SCH ×3 (06:00→21:41)
[2022-03-17] MEDS: LEVOTHYROXINE SODIUM 50 MCG TABLET PO SCH (06:01)
[2022-03-17 07:30] VITALS: BP 138/57
[2022-03-17] MEDS: ALPRAZOLAM 0.5 MG TABLET PO SCH ×3 (08:30→16:44)
[2022-03-17] MEDS: OXCARBAZEPINE 300 MG TABLET PO SCH ×3 (08:30→16:44)
[2022-03-17] MEDS: GLUCERNA SHAKE 237 ML CAN PO SCH (08:30)
[2022-03-17] MEDS: risperiDONE 2 MG TABLET PO SCH ×3 (08:30→16:44)
[2022-03-17] MEDS: AMANTADINE HCL 100 MG CAPSULE PO SCH ×2 (08:30→16:45)
[2022-03-17] MEDS: FLUVOXAMINE MALEATE 25 MG TABLET PO SCH ×2 (11:03→16:44)
[2022-03-17 16:00] VITALS: BP 104/41
[2022-03-17 19:45] VITALS: BP 110/46
[2022-03-18] MEDS: HYDROXYZINE PAMOATE 25 MG CAPSULE PO PRN ×3 (03:46→11:43)
[2022-03-18] MEDS: LEVOTHYROXINE SODIUM 50 MCG TABLET PO SCH (06:00)
[2022-03-18] MEDS: POLYVINYL ALCOHOL OPHT DROPS 15 ML BOTTLE EACHEYE SCH ×3 (06:00→23:01)
[2022-03-18 07:30] VITALS: BP 96/48
[2022-03-18] MEDS: OXCARBAZEPINE 300 MG TABLET PO SCH ×3 (08:19→17:00)
[2022-03-18] MEDS: FLUVOXAMINE MALEATE 25 MG TABLET PO SCH ×2 (08:19→17:00)
[2022-03-18] MEDS: risperiDONE 2 MG TABLET PO SCH ×3 (08:19→17:00)
[2022-03-18] MEDS: ALPRAZOLAM 0.5 MG TABLET PO SCH ×3 (08:19→17:00)
[2022-03-18] MEDS: AMANTADINE HCL 100 MG CAPSULE PO SCH ×2 (08:50→17:00)
[2022-03-18] MEDS: GLUCERNA SHAKE 237 ML CAN PO SCH (08:51)
[2022-03-18] MEDS: ACETAMINOPHEN 325 MG TABLET PO PRN ×2 (14:09→20:46)
[2022-03-18] MEDS ORDERED: LORAZEPAM 2 MG/1 ML VIAL IM ONE (14:15)
[2022-03-18 16:00] VITALS: BP 96/41
[2022-03-18 19:50] VITALS: BP 139/56
[2022-03-18] MEDS: TEMAZEPAM 7.5 MG CAPSULE PO PRN (20:46)
[2022-03-19] MEDS: POLYVINYL ALCOHOL OPHT DROPS 15 ML BOTTLE EACHEYE SCH ×3 (05:32→22:00)
[2022-03-19] MEDS: LEVOTHYROXINE SODIUM 50 MCG TABLET PO SCH (06:04)
[2022-03-19 07:30] VITALS: BP 127/66
[2022-03-19] MEDS: risperiDONE 2 MG TABLET PO SCH ×3 (09:19→17:44)
[2022-03-19] MEDS: GLUCERNA SHAKE 237 ML CAN PO SCH (09:19)
[2022-03-19] MEDS: OXCARBAZEPINE 300 MG TABLET PO SCH ×3 (09:19→17:44)
[2022-03-19] MEDS: ALPRAZOLAM 0.5 MG TABLET PO SCH ×3 (09:19→17:44)
[2022-03-19] MEDS: FLUVOXAMINE MALEATE 25 MG TABLET PO SCH ×2 (09:19→17:43)
[2022-03-19] MEDS: AMANTADINE HCL 100 MG CAPSULE PO SCH ×2 (09:40→17:44)
[2022-03-19] MEDS: HYDROXYZINE PAMOATE 25 MG CAPSULE PO PRN ×2 (11:32→20:42)
[2022-03-19] MEDS ORDERED: LORAZEPAM 2 MG/1 ML VIAL IM ONE (11:45)
[2022-03-19 16:00] VITALS: BP 119/56
[2022-03-19 20:13] VITALS: BP 101/49
[2022-03-19] MEDS: ACETAMINOPHEN 325 MG TABLET PO PRN (20:42)
[2022-03-20] MEDS: POLYVINYL ALCOHOL OPHT DROPS 15 ML BOTTLE EACHEYE SCH ×3 (06:00→21:47)
[2022-03-20] MEDS: LEVOTHYROXINE SODIUM 50 MCG TABLET PO SCH (06:50)
[2022-03-20 07:30] VITALS: BP 112/52
[2022-03-20] MEDS: ALPRAZOLAM 0.5 MG TABLET PO SCH (08:27)
[2022-03-20] MEDS: OXCARBAZEPINE 300 MG TABLET PO SCH ×3 (08:27→16:31)
[2022-03-20] MEDS: risperiDONE 2 MG TABLET PO SCH ×3 (08:27→16:31)
[2022-03-20] MEDS: FLUVOXAMINE MALEATE 25 MG TABLET PO SCH ×2 (08:27→16:31)
[2022-03-20] MEDS: AMANTADINE HCL 100 MG CAPSULE PO SCH ×2 (08:29→16:33)
[2022-03-20] MEDS: GLUCERNA SHAKE 237 ML CAN PO SCH (08:30)
[2022-03-20] MEDS: ACETAMINOPHEN 325 MG TABLET PO PRN ×2 (10:57→17:33)
[2022-03-20] MEDS: HYDROXYZINE PAMOATE 25 MG CAPSULE PO PRN ×2 (10:57→17:32)
[2022-03-20] MEDS: CLONAZEPAM 0.5 MG TABLET PO SCH ×2 (12:18→16:31)
[2022-03-20 16:00] VITALS: BP 108/57
[2022-03-20] MEDS: TEMAZEPAM 7.5 MG CAPSULE PO PRN (21:47)
[2022-03-20 22:31] VITALS: BP 106/45
[2022-03-20 22:34] VITALS: BP 114/54
[2022-03-21] MEDS: POLYVINYL ALCOHOL OPHT DROPS 15 ML BOTTLE EACHEYE SCH ×3 (06:00→21:39)
[2022-03-21] MEDS: HYDROXYZINE PAMOATE 25 MG CAPSULE PO PRN (07:10)
[2022-03-21] MEDS: LEVOTHYROXINE SODIUM 50 MCG TABLET PO SCH (07:10)
[2022-03-21 07:38] VITALS: BP 143/56
[2022-03-21] MEDS: CLONAZEPAM 0.5 MG TABLET PO SCH ×3 (08:54→17:31)
[2022-03-21] MEDS: AMANTADINE HCL 100 MG CAPSULE PO SCH ×2 (08:54→17:07)
[2022-03-21] MEDS: OXCARBAZEPINE 300 MG TABLET PO SCH ×3 (08:54→17:06)
[2022-03-21] MEDS: FLUVOXAMINE MALEATE 25 MG TABLET PO SCH ×2 (08:54→17:06)
[2022-03-21] MEDS: risperiDONE 2 MG TABLET PO SCH ×3 (08:54→17:06)
[2022-03-21] MEDS: GLUCERNA SHAKE 237 ML CAN PO SCH (08:55)
[2022-03-21] MEDS ORDERED: LORAZEPAM 2 MG/1 ML VIAL ONE (11:04)
[2022-03-21] MEDS ORDERED: LORAZEPAM 2 MG/1 ML VIAL IM ONE (11:15)
[2022-03-21 16:25] VITALS: BP 90/48
[2022-03-21] MEDS: TEMAZEPAM 7.5 MG CAPSULE PO PRN (21:39)
[2022-03-22] MEDS: POLYVINYL ALCOHOL OPHT DROPS 15 ML BOTTLE EACHEYE SCH ×3 (06:00→22:00)
[2022-03-22] MEDS: LEVOTHYROXINE SODIUM 50 MCG TABLET PO SCH (07:02)
[2022-03-22 07:52] VITALS: BP 128/59
[2022-03-22] MEDS: GLUCERNA SHAKE 237 ML CAN PO SCH (08:22)
[2022-03-22] MEDS: risperiDONE 2 MG TABLET PO SCH ×3 (08:42→16:45)
[2022-03-22] MEDS: FLUVOXAMINE MALEATE 25 MG TABLET PO SCH ×2 (08:42→16:45)
[2022-03-22] MEDS: AMANTADINE HCL 100 MG CAPSULE PO SCH ×2 (08:43→16:45)
[2022-03-22] MEDS: OXCARBAZEPINE 300 MG TABLET PO SCH ×3 (08:43→16:45)
[2022-03-22] MEDS: CLONAZEPAM 0.5 MG TABLET PO SCH ×3 (08:43→16:45)
[2022-03-22] MEDS: HYDROXYZINE PAMOATE 25 MG CAPSULE PO PRN (14:03)
[2022-03-22 20:00] VITALS: BP 128/65
[2022-03-23] MEDS: TEMAZEPAM 7.5 MG CAPSULE PO PRN ×2 (02:58→22:58)
[2022-03-23] MEDS: HYDROXYZINE PAMOATE 25 MG CAPSULE PO PRN (02:59)
[2022-03-23] MEDS: LEVOTHYROXINE SODIUM 50 MCG TABLET PO SCH (06:38)
[2022-03-23] MEDS: POLYVINYL ALCOHOL OPHT DROPS 15 ML BOTTLE EACHEYE SCH ×3 (06:38→21:45)
[2022-03-23 07:51] VITALS: BP 141/67
[2022-03-23] MEDS: OXCARBAZEPINE 300 MG TABLET PO SCH ×3 (09:22→16:12)
[2022-03-23] MEDS: GLUCERNA SHAKE 237 ML CAN PO SCH (09:22)
[2022-03-23] MEDS: risperiDONE 2 MG TABLET PO SCH ×3 (09:22→16:12)
[2022-03-23] MEDS: CLONAZEPAM 0.5 MG TABLET PO SCH ×3 (09:22→16:12)
[2022-03-23] MEDS: AMANTADINE HCL 100 MG CAPSULE PO SCH ×2 (09:22→16:12)
[2022-03-23] MEDS: FLUVOXAMINE MALEATE 25 MG TABLET PO SCH ×3 (09:22→16:12)
[2022-03-23 15:51] VITALS: BP 124/68
[2022-03-23 21:05] VITALS: BP 109/44
[2022-03-24] MEDS: ACETAMINOPHEN 325 MG TABLET PO PRN ×2 (01:41→16:45)
[2022-03-24] MEDS: HYDROXYZINE PAMOATE 25 MG CAPSULE PO PRN ×2 (01:41→16:45)
[2022-03-24] MEDS: POLYVINYL ALCOHOL OPHT DROPS 15 ML BOTTLE EACHEYE SCH ×3 (06:00→22:00)
[2022-03-24] MEDS: LEVOTHYROXINE SODIUM 50 MCG TABLET PO SCH (06:02)
[2022-03-24 08:02] VITALS: BP 136/51
[2022-03-24] MEDS: FLUVOXAMINE MALEATE 25 MG TABLET PO SCH ×3 (08:44→18:09)
[2022-03-24] MEDS: CLONAZEPAM 0.5 MG TABLET PO SCH ×3 (08:44→18:10)
[2022-03-24] MEDS: OXCARBAZEPINE 300 MG TABLET PO SCH ×3 (08:44→18:09)
[2022-03-24] MEDS: AMANTADINE HCL 100 MG CAPSULE PO SCH ×2 (08:44→18:12)
[2022-03-24] MEDS: risperiDONE 2 MG TABLET PO SCH ×3 (08:44→18:10)
[2022-03-24] MEDS: GLUCERNA SHAKE 237 ML CAN PO SCH (08:45)
[2022-03-24 15:28] VITALS: BP 98/56
[2022-03-24 20:01] VITALS: BP 102/61
[2022-03-25] MEDS: LEVOTHYROXINE SODIUM 50 MCG TABLET PO SCH (06:08)
[2022-03-25] MEDS: POLYVINYL ALCOHOL OPHT DROPS 15 ML BOTTLE EACHEYE SCH ×3 (06:08→21:21)
[2022-03-25 07:30] VITALS: BP 120/60
[2022-03-25] MEDS: OXCARBAZEPINE 300 MG TABLET PO SCH ×3 (09:03→17:51)
[2022-03-25] MEDS: FLUVOXAMINE MALEATE 25 MG TABLET PO SCH ×3 (09:03→17:52)
[2022-03-25] MEDS: GLUCERNA SHAKE 237 ML CAN PO SCH (09:03)
[2022-03-25] MEDS: AMANTADINE HCL 100 MG CAPSULE PO SCH ×2 (09:03→17:51)
[2022-03-25] MEDS: risperiDONE 2 MG TABLET PO SCH ×3 (09:04→17:52)
[2022-03-25] MEDS: CLONAZEPAM 0.5 MG TABLET PO SCH ×3 (09:04→17:52)
[2022-03-25] MEDS: HYDROXYZINE PAMOATE 25 MG CAPSULE PO PRN (13:22)
[2022-03-25 16:00] VITALS: BP 116/43
[2022-03-25 20:12] VITALS: BP 126/56
[2022-03-26] MEDS: HYDROXYZINE PAMOATE 25 MG CAPSULE PO PRN (04:38)
[2022-03-26] MEDS: POLYVINYL ALCOHOL OPHT DROPS 15 ML BOTTLE EACHEYE SCH (06:46)
[2022-03-26] MEDS: LEVOTHYROXINE SODIUM 50 MCG TABLET PO SCH (06:46)
[2022-03-26 07:30] VITALS: BP 135/60
[2022-03-26] MEDS: AMANTADINE HCL 100 MG CAPSULE PO SCH (08:52)
[2022-03-26] MEDS: OXCARBAZEPINE 300 MG TABLET PO SCH (08:52)
[2022-03-26] MEDS: FLUVOXAMINE MALEATE 25 MG TABLET PO SCH (08:52)
[2022-03-26] MEDS: CLONAZEPAM 0.5 MG TABLET PO SCH (08:52)
[2022-03-26] MEDS: risperiDONE 2 MG TABLET PO SCH (08:52)
[2022-03-26] MEDS: GLUCERNA SHAKE 237 ML CAN PO SCH (08:55)
== END 2022-03-26 11:30 | DRG 885 ==
LOC: ER 21:35 → GPS 23:00
PROVIDERS: ADMIT Psychiatry & Neurology Psychiatry; ATTEND Nurse Practitioner Acute Care
DX: F25.0 Schizoaffective disorder, bipolar type (principal); F02.84 Dementia in other diseases classified elsewhere, unspecified severity, with anxiety; G20 Parkinson's disease; D72.829 Elevated white blood cell count, unspecified; E03.9 Hypothyroidism, unspecified; E86.0 Dehydration; F60.3 Borderline personality disorder; Z20.822 Contact with and (suspected) exposure to COVID-19; Z73.6 Limitation of activities due to disability; R26.89 Other abnormalities of gait and mobility; F29 Unspecified psychosis not due to a substance or known physiological condition; F42.9 Obsessive-compulsive disorder, unspecified; F41.9 Anxiety disorder, unspecified
CPT/HCPCS: 36415; 71045; 83735; 84100; 84443; 85025; G0480; J1630; J2060; J2358